=== PATIENT | female | born 1950 | race Caucasian/White ===

== ENCOUNTER → 2019-05-23 12:15 | Outpatient (CLI) | payer MEDICARE, OTHER, SELFPAY ==
--- NOTE | ~2019-05-23 | MR_ITS ---
EXAMINATION: MR lumbar spine wo con EXAM DATE: 05/23/2019 13:02 INDICATION: Low back pain, right hip, right leg pain. TECHNIQUE: Multi-sequential, multiplanar MR images of the lumbar spine were obtained without contrast . Sagittal T1, T2, T2 fat saturation images. Axial T2 weighted images. There is no prior study for comparison. FINDINGS: Suspicion of cystic right ovarian mass measuring over 8 cm in size, incompletely imaged. Re commend pelvic sonogram to evaluate possibility of cystic ovarian neoplasm. There is mild to moderate disc disease throughout the lumbar spine. The conus medullaris terminates a t the L1/2 level and has normal signal intensity and morphology. Mild lumbar levoscoliosis. The vert ebral bodies are aligned in the AP dimension. Vertebral body and disc heights are well-maintained. Pa raspinal soft tissue is unremarkable. Level by level evaluation: T12-L1: Disc does not extend beyond the endplate margin. Facet arthropathy: Mild. Neural foraminal stenosis: No stenosis. Central canal stenosis: No stenosis. L1-L2: There is a mild to moderate diffuse disc bulge. Facet arthropathy: Mild. Neural foraminal stenosis: Mild left. Central canal stenosis: Mild. L2-L3: There is a mild to moderate diffuse disc bulge. Facet arthropathy: Mild. Neural foraminal stenosis: Mild right. Central canal stenosis: Mild. L3-L4: There is a mild diffuse disc bulge. Facet arthropathy: Mild. Neural foraminal stenosis: Mild bilateral. Central canal stenosis: Mild. L4-L5: There is a mild to moderate diffuse disc bulge. Facet arthropathy: Mild to moderate. Neural foraminal stenosis: Mild to moderate bilateral. Central canal stenosis: Mild to moderate. L5-S1: There is a mild diffuse disc bulge. Facet arthropathy: Mild. Neural foraminal stenosis: Mild left. Central canal stenosis: No stenosis. IMPRESSION: 1. Cystic pelvic region probably cystic right ovarian mass; recommend pelvic sonogram. 2. Mild to moderate lumbar spondylosis. Reviewed, dictated and finalized at location A. EKEE[employer] ENGINEER[employer] IMPRESSION: 1. Cystic pelvic region probably cystic right ovarian mass; recommend pelvic s onogram. 2. Mild to moderate lumbar spondylosis.
== END ==
PROVIDERS: Visit Provider Orthopaedic Surgery
DX: M47.26 Other spondylosis with radiculopathy, lumbar region (principal)
CPT/HCPCS: 72148

== ENCOUNTER 2019-09-05 06:40 | Outpatient (CLI) | payer MEDICARE, OTHER, SELFPAY ==
[2019-09-05 07:39] LABS: Alanine Aminotransferase 24 U/L (4-35); Albumin Level 4.2 g/dL (3.5-5.1); Alkaline Phosphatase 55 U/L (38-126); Aspartate Amino Transferase 29 U/L (14-36); Bilirubin,Total 0.6 mg/dL (0.2-1.3); Blood Urea Nitrogen 13 mg/dL (7-17); Calcium 9.5 mg/dL (8.4-10.2); Carbon Dioxide 33 mmol/L (22-30); Chloride 99 mmol/L (98-107); Estimated Glomerular Filt Rate > 60; Glucose 119 mg/dL (65-105); Potassium 4.1 mmol/L (3.4-5.0); Sodium 138 mmol/L (137-145)
[2019-09-05 07:53] LABS: Creatinine Urine 118.8 mg/dL
[2019-09-05 07:57] LABS: MALB Creatinine Ratio 26.6 mg/g (0-30); Microalbumin Urine Random 31.6 mg/L (0-16.7)
== END 2019-09-05 06:41 | disposition home or self-care (01) ==
PROVIDERS: PCP Internal Medicine; Visit Provider Internal Medicine
DX: R73.01 Impaired fasting glucose (principal)
CPT/HCPCS: 36415; 80053; 82043; 83036

== ENCOUNTER 2019-09-10 13:32 | Outpatient (CLI) | payer MEDICARE, OTHER, SELFPAY ==
[2019-09-10 14:54] LABS: Add Urine Microscopic? YES; Appearance Urine Clear (Clear); Bilirubin Urine Negative (Negative); Blood Urine 3+ (Negative); Color Urine Amber (Yellow); Glucose Urine UA Negative (Negative); Ketones Urine Negative (Negative); Leukocyte Esterase Ur 1+ LEU/UL (Negative); Mucus Urine Rare /lpf; Nitrate Urine Positive (Negative); Protein Urine Negative (Negative); RBC Urine >75 /hpf (0-2); Specific Grav Ur 1.017 (1.001-1.035); Squamous Epithelial Cell Urine Rare /hpf (Few); WBC Urine >75 /hpf
== END 2019-09-10 13:33 | disposition home or self-care (01) ==
LOC: ANHLAB 13:37
PROVIDERS: PCP Internal Medicine; Visit Provider Internal Medicine
DX: N39.0 Urinary tract infection, site not specified (principal)
CPT/HCPCS: 81001; 87077; 87086; 87088; 87186

== ENCOUNTER 2019-12-14 09:02 | Outpatient (CLI) | payer MEDICARE, OTHER, SELFPAY ==
--- NOTE | ~2019-12-14 | MM_ITS ---
EXAMINATION: MM screening olga BI w angely HISTORY: Screening mammogram TECHNIQUE: Craniocaudal and mediolateral oblique 3-D tomosynthesis images were obtained and synthetic 2-D images were generated. CAD analysis was submitted and interpreted. COMPARISON: 10/12/2018, 09/28/2017 bilateral digital screening mammogram examinations BREAST PARENCHYMAL COMPOSITION: There are scattered areas of fibroglandular density. FINDINGS: There is no evidence of suspicious mass, calcification, or architectural distortion to sugg est malignancy in either breast. There has been no suspicious interval change. IMPRESSION: 1. No mammographic evidence of malignancy. 2. Recommend routine screening mammography in one year. BI-RADS Category 1: Negative Reviewed, dictated and finalized at location A.
== END 2019-12-14 09:03 | disposition home or self-care (01) ==
LOC: ANHIMG 09:06
PROVIDERS: PCP Internal Medicine; Visit Provider Obstetrics & Gynecology
DX: Z12.31 Encounter for screening mammogram for malignant neoplasm of breast (principal)
CPT/HCPCS: 77063; 77067

== ENCOUNTER 2020-02-25 09:11 | Outpatient (CLI) | payer MEDICARE, OTHER, SELFPAY ==
[2020-02-25 09:35] LABS: Basophils Absolute Auto 0.1 K/mm3 (0.0-0.1); Basophils Percent Auto 1.1 % (0.2-1.2); Eosinophils Absolute Auto 0.1 K/mm3 (0-0.3); Eosinophils Percent Auto 1.4 % (0-4.4); Hematocrit 42.2 % (37.0-47.0); Hemoglobin 13.8 g/dL (12.0-15.0); Immature Granulocyte Absolute 0.02 K/mm3 (0.00-0.031); Immature Granulocyte Percent A 0.3 % (0-0.5); Lymphocytes Absolute Auto 1.76 K/mm3 (0.9-3.2); Lymphocytes Percent Auto 26.9 % (18.3-44.2); Mean Corpuscular HGB Conc 32.7 g/dl (32-36); Mean Corpuscular Hemoglobin 28.8 pg (26-34); Mean Corpuscular Volume 88.1 fl (80-100); Mean Platelet Volume 10.5 fl (7.4-10.4); Monocytes Absolute Auto 0.4 K/mm3 (0.1-0.6); Monocytes Percent Auto 5.8 % (2.6-8.5); Neutrophils Absolute Auto 4.2 K/mm3 (1.3-6.7); Neutrophils Percent Auto 64.5 % (45.5-73.1); Platelet Count Result 262 k/mm3 (150-375); Red Blood Count 4.79 M/mm3 (4.2-5.4); Red Cell Distribution Width 14.7 % (11.5-14.5); White Blood Count 6.6 K/mm3 (4.5-10.0)
[2020-02-25 09:42] LABS: Hemoglobin A1C 5.7 % (<5.7)
[2020-02-25 09:47] LABS: Alanine Aminotransferase 27 U/L (4-35); Albumin Level 4.4 g/dL (3.5-5.1); Alkaline Phosphatase 55 U/L (38-126); Anion Gap 7 mmol/L (8-16); Aspartate Amino Transferase 37 U/L (14-36); Bilirubin,Total 0.8 mg/dL (0.2-1.3); Blood Urea Nitrogen 17 mg/dL (7-17); Calcium 9.6 mg/dL (8.4-10.2); Carbon Dioxide 30 mmol/L (22-30); Chloride 101 mmol/L (98-107); Cholesterol 148 mg/dL (0-200); Estimated Glomerular Filt Rate > 60; Glucose 111 mg/dL (65-105); HDL Direct 84 mg/dL; Potassium 4.4 mmol/L (3.4-5.0); Sodium 138 mmol/L (137-145); Triglycerides 90 mg/dL (<150)
[2020-02-25 10:02] LABS: LDL Cholesterol Direct < 30 mg/dL
[2020-02-25 10:25] LABS: Creatinine Urine 117.5 mg/dL
[2020-02-25 10:29] LABS: MALB Creatinine Ratio 65.8 mg/g (0-30); Microalbumin Urine Random 77.3 mg/L (0-16.7)
[2020-02-25 10:33] LABS: Vitamin D 25 Hydroxy 69.5 ng/mL
== END 2020-02-25 09:12 | disposition home or self-care (01) ==
LOC: ANHLAB 09:16
PROVIDERS: PCP Internal Medicine; Visit Provider Internal Medicine
DX: I10 Essential (primary) hypertension (principal); R73.01 Impaired fasting glucose; E55.9 Vitamin D deficiency, unspecified
CPT/HCPCS: 36415; 80053; 80061; 82043; 82306; 83036; 84443; 85025

== ENCOUNTER 2020-09-12 07:50 | Outpatient (CLI) | payer MEDICARE, OTHER, SELFPAY ==
[2020-09-12 16:05] LABS: Alanine Aminotransferase 18 U/L (4-35); Albumin Level 4.1 g/dL (3.5-5.1); Alkaline Phosphatase 42 U/L (38-126); Anion Gap 1 mmol/L (8-16); Aspartate Amino Transferase 28 U/L (14-36); Blood Urea Nitrogen 14 mg/dL (7-17); Calcium 9.8 mg/dL (8.4-10.2); Carbon Dioxide 34 mmol/L (22-30); Chloride 105 mmol/L (98-107); Cholesterol 212 mg/dL (0-200); Estimated Glomerular Filt Rate > 60; Glucose 118 mg/dL (65-105); HDL Direct 85 mg/dL; Potassium 4.5 mmol/L (3.4-5.0); Sodium 140 mmol/L (137-145); Triglycerides 162 mg/dL (<150)
[2020-09-12 16:16] LABS: LDL Cholesterol Direct 58 mg/dL
[2020-09-12 16:24] LABS: Creatinine Urine 197.3 mg/dL
[2020-09-12 16:26] LABS: MALB Creatinine Ratio 16.7 mg/g (0-30)
[2020-09-12 17:50] LABS: Hemoglobin A1C 5.4 % (<5.7)
== END 2020-09-12 07:51 | disposition home or self-care (01) ==
PROVIDERS: PCP Internal Medicine; Visit Provider Internal Medicine
DX: R73.01 Impaired fasting glucose (principal); Z51.81 Encounter for therapeutic drug level monitoring; Z79.899 Other long term (current) drug therapy
CPT/HCPCS: 36415; 80053; 80061; 82043; 83036

== ENCOUNTER 2020-12-17 08:19 | Outpatient (CLI) | payer MEDICARE, OTHER, SELFPAY ==
--- NOTE | ~2020-12-17 | MM_ITS ---
EXAMINATION: MM screening [facility] BI w angely HISTORY: Screening mammogram TECHNIQUE: Craniocaudal and mediolateral oblique 3-D tomosynthesis images were obtained and synthetic 2-D images were generated. CAD analysis was submitted and interpreted. COMPARISON: Prior mammograms dating back to 11/14/2015 BREAST PARENCHYMAL COMPOSITION: There are scattered areas of fibroglandular density. FINDINGS: There is no evidence of suspicious mass, calcification, or architectural distortion to sugg est malignancy in either breast. There has been no suspicious interval change. IMPRESSION: 1. No mammographic evidence of malignancy. 2. Recommend routine screening mammography in one year. BI-RADS Category 1: Negative Reviewed, dictated and finalized at location A.
== END 2020-12-17 08:20 | disposition home or self-care (01) ==
LOC: ANHIMG 08:23
PROVIDERS: PCP Internal Medicine; Visit Provider Internal Medicine
DX: Z12.31 Encounter for screening mammogram for malignant neoplasm of breast (principal)
CPT/HCPCS: 77063; 77067

== ENCOUNTER 2021-02-09 14:47 | Outpatient (CLI) | payer MEDICARE, OTHER, SELFPAY ==
[2021-02-09 15:29] LABS: Add Urine Microscopic? YES; Appearance Urine Clear (Clear); Bilirubin Urine Negative (Negative); Blood Urine 1+ (Negative); Color Urine Amber (Yellow); Glucose Urine UA Negative (Negative); Ketones Urine Negative (Negative); Leukocyte Esterase Ur 3+ LEU/UL (Negative); Nitrate Urine Positive (Negative); Protein Urine Negative (Negative); Specific Grav Ur 1.011 (1.001-1.035); Urobilinogen Urine Negative mg/dL (<2.0); WBC Urine 16-20 /hpf
== END 2021-02-09 14:48 | disposition home or self-care (01) ==
LOC: ANHLAB 14:51
PROVIDERS: PCP Internal Medicine; Visit Provider Internal Medicine
DX: N39.0 Urinary tract infection, site not specified (principal)
CPT/HCPCS: 81001; 87077; 87086; 87186

== ENCOUNTER 2021-03-06 07:25 | Outpatient (CLI) | payer MEDICARE, OTHER, SELFPAY ==
[2021-03-06 19:31] LABS: Hematocrit 44.8 % (37.0-47.0); Hemoglobin 14.3 g/dL (12.0-15.0); Mean Corpuscular HGB Conc 31.9 g/dl (32-36); Mean Corpuscular Hemoglobin 30.1 pg (26-34); Mean Corpuscular Volume 94.3 fl (80-100); Platelet Count Result 268 k/mm3 (150-375); Red Blood Count 4.75 M/mm3 (4.2-5.4); Red Cell Distribution Width 14.4 % (11.5-14.5); White Blood Count 6.4 K/mm3 (4.5-10.0)
[2021-03-06 19:39] LABS: Alanine Aminotransferase 20 U/L (4-35); Albumin Level 4.1 g/dL (3.5-5.1); Alkaline Phosphatase 46 U/L (38-126); Anion Gap 2 mmol/L (8-16); Aspartate Amino Transferase 27 U/L (14-36); Bilirubin,Total 0.8 mg/dL (0.2-1.3); Blood Urea Nitrogen 16 mg/dL (7-17); Calcium 9.6 mg/dL (8.4-10.2); Carbon Dioxide 30 mmol/L (22-30); Chloride 101 mmol/L (98-107); Estimated Glomerular Filt Rate > 60; Glucose 105 mg/dL (65-110); Potassium 4.3 mmol/L (3.4-5.0); Sodium 133 mmol/L (137-145)
[2021-03-06 22:10] LABS: Microalbumin Urine Random 23.7 mg/L (0-16.7)
== END 2021-03-06 07:26 | disposition home or self-care (01) ==
PROVIDERS: PCP Internal Medicine; Visit Provider Internal Medicine
DX: M81.0 Age-related osteoporosis without current pathological fracture (principal); M70.61 Trochanteric bursitis, right hip; E78.5 Hyperlipidemia, unspecified
CPT/HCPCS: 36415; 80053; 82043; 85027

== ENCOUNTER 2021-03-23 10:33 | Outpatient (CLI) | payer MEDICARE, OTHER, SELFPAY ==
--- NOTE | 2021-03-23 10:51 | ECG_ITS ---
Measurements Intervals [place] Rate: 59 P: 48 SC: 176 QRS: -7 QRSD: 89 T: 38 QT: 404 QTc: 402 Interpretive Statements SINUS BRADYCARDIA CANNOT RULE OUT SEPTAL INFARCT, AGE INDETERMINATE CONSIDER INFERIOR INFARCT, AGE INDETERMINATE BORDERLINE ST-T WAVE ABNORMALITY- ANTEROLAT/HIG HLAT LEADS ABNORMAL ECG Electronically Signed On 03-23-2021 11:23:11 CDT by José Briceno D.O.
== END 2021-03-23 10:34 | disposition home or self-care (01) ==
LOC: ANHCARD 10:35
PROVIDERS: PCP Internal Medicine; Visit Provider Internal Medicine
DX: R00.1 Bradycardia, unspecified (principal); I10 Essential (primary) hypertension; R94.31 Abnormal electrocardiogram [ECG] [EKG]
CPT/HCPCS: 93005

== ENCOUNTER 2021-04-10 10:11 | Outpatient (CLI) | payer MEDICARE, OTHER, SELFPAY ==
--- NOTE | ~2021-04-10 | NM_ITS ---
EXAMINATION: NM stress w perf spect multi DATE: 04/10/2021 13:48 INDICATION: Abnormal EKG TECHNIQUE: Rest images were obtained following intravenous administration of 9.2 mCi Tc99m tetrofosmi n ([employer]). The patient performed an exercise activity. At peak exercise, 29.1 mCi Tc99m tetrofosmin ([employer]) was administered intravenously, and stress images were obtained in supine position. Additi onal post stress images were obtained in the prone position. Data was reconstructed into short axis a nd horizontal and vertical long axis SPECT images. Gated SPECT images were also obtained. COMPARISON: None. FINDINGS: There is normal left ventricular perfusion without definite evidence of reversible or fixed perfusion abnormality to suggest ischemia or infarction. There is normal left ventricular chamber size, wall motion and ejection fraction. Left ventricular ejection fraction measures 57%. IMPRESSION: 1. Normal myocardial perfusion at rest and during stress. 2. Left ventricular ejection fraction measuring 57%. Reviewed, dictated and finalized at location A.
--- NOTE | 2021-04-10 11:58 | EST_ITS ---
Patient Info Name: Izabel Miguel Ormrod Age: 70 years : 1950 Gender: Female Ht: 65 in Wt: 167 lbs BSA: 1.88 m2 Heart Rhythm: Sinus Rhythm Exam Date: 04/10/2021 12:02 PM Exam Location: [facility] [place] [facility] Patient Status: Outpatient Admit Date: 04/10/2021 Staff Ordering Physician: Jay Stovall MD Attending Provider: Jay Stovall MD Exercise Technologist: Lena Aquino CT Exercise Physician: José Briceno DO Exam Type: CA stress test treadmill w NM Study Info A nuclear stress test was performed. Summary 1. 1. Negative David exercise stress test for ischemic ST changes by ECG criteria. 2. 2. Good functional capacity, achieving 8 METs of workload. 3. 3. Baseline hypertension. 4. 4. Appropriate HR response to exercise. 5. 5. Appropriate HR recovery at 1 minute post exercise. 6. 6. Frequent premature ventricular ectopics. 7. 7. Nuclear scan to follow and will be reported separately. Please correlate with it. 8. 8. Patient informed of the above results. Protocol: David Stress ECG Details Stage: REST Duration (min): 1 min : 56 sec Speed (mph): 0.0 Grade (%): 0 HR (bpm): 55 SBP (mmHg): 163 DBP (mmHg): 81 METS: --- Stage: REST Duration (min): 5 min : 43 sec Speed (mph): 0.0 Grade (%): 0 HR (bpm): --- SBP (mmHg): 163 DBP (mmHg): 81 METS: --- Stage: STAGE 1 Duration (min): 1 min : 0 sec Speed (mph): 1.7 Grade (%): 10 HR (bpm): 87 SBP (mmHg): 163 DBP (mmHg): 81 METS: --- Stage: STAGE 1 Duration (min): 2 min : 0 sec Speed (mph): 1.7 Grade (%): 10 HR (bpm): --- SBP (mmHg): 163 DBP (mmHg): 81 METS: --- Stage: STAGE 1 Duration (min): 3 min : 0 sec Speed (mph): 1.7 Grade (%): 10 HR (bpm): --- SBP (mmHg): 174 DBP (mmHg): 72 METS: --- Stage: STAGE 2 Duration (min): 1 min : 0 sec Speed (mph): 2.5 Grade (%): 12 HR (bpm): 98 SBP (mmHg): 174 DBP (mmHg): 72 METS: --- Stage: STAGE 2 Duration (min): 2 min : 0 sec Speed (mph): 2.5 Grade (%): 12 HR (bpm): 127 SBP (mmHg): 174 DBP (mmHg): 72 METS: --- Stage: STAGE 2 Duration (min): 3 min : 0 sec Speed (mph): 2.5 Grade (%): 12 HR (bpm): --- SBP (mmHg): 174 DBP (mmHg): 72 METS: --- Stage: STAGE 3 Duration (min): 0 min : 49 sec Speed (mph): 3.4 Grade (%): 14 HR (bpm): --- SBP (mmHg): 153 DBP (mmHg): 83 METS: --- Stage: RECOVERY Duration (min): 0 min : 10 sec Speed (mph): 1.5 Grade (%): 0 HR (bpm): --- SBP (mmHg): 153 DBP (mmHg): 83 METS: --- Stage: RECOVERY Duration (min): 1 min : 10 sec Speed (mph): 0.0 Grade (%): 0 HR (bpm): 110 SBP (mmHg): 153 DBP (mmHg): 83 METS: --- Stage: RECOVERY Duration (min): 2 min : 10 sec Speed (mph): 0.0 Grade (%): 0 HR (bpm): 97 SBP (mmHg): 153 DBP (mmHg): 83 METS:
== END 2021-04-10 10:12 | disposition home or self-care (01) ==
PROVIDERS: PCP Internal Medicine; Visit Provider Internal Medicine
DX: R94.31 Abnormal electrocardiogram [ECG] [EKG] (principal)
CPT/HCPCS: 78452; 93017; A9502

== ENCOUNTER 2022-01-25 07:49 | Outpatient (CLI) | payer MEDICARE, OTHER, SELFPAY ==
--- NOTE | ~2022-01-25 | MM_ITS ---
EXAMINATION: MM screening olga BI w angely HISTORY: Screening mammogram TECHNIQUE: Craniocaudal and mediolateral oblique 3-D tomosynthesis images were obtained and synthetic 2-D images were generated. CAD analysis was submitted and interpreted. COMPARISON: 12/17/2020, 12/14/2019, 10/12/2018 bilateral screening mammogram examinations BREAST PARENCHYMAL COMPOSITION: There are scattered areas of fibroglandular density. FINDINGS: There is no evidence of suspicious mass, calcification, or architectural distortion to sugg est malignancy in either breast. There has been no suspicious interval change. IMPRESSION: 1. No mammographic evidence of malignancy. 2. Recommend routine screening mammography in one year. BI-RADS Category 1: Negative Reviewed, dictated and finalized at location A.
== END 2022-01-25 07:50 | disposition home or self-care (01) ==
LOC: ANHIMG 07:51
PROVIDERS: PCP Internal Medicine; Visit Provider Internal Medicine
DX: Z12.31 Encounter for screening mammogram for malignant neoplasm of breast (principal)
CPT/HCPCS: 77063; 77067

== ENCOUNTER 2022-03-16 09:32 | Outpatient (CLI) | payer MEDICARE, OTHER, SELFPAY ==
--- NOTE | 2022-03-16 11:59 | ECG_ITS ---
Measurements Intervals [place] Rate: 67 P: 54 ID: [id number] QRS: -21 QRSD: 89 T: 37 QT: 381 QTc: 404 Interpretive Statements SINUS RHYTHM WITH MARKED SINUS ARRHYTHMIA VENTRICULAR PREMATURE COMPLEX INFERIOR INFARCT, AGE INDETERMINATE BORDERLINE ST-T WAVE ABNORMALITY- ANT/HIGH LAT LEADS BASELINE ARTIFACT- I, II, AVR, AVL, V4 ABNORMAL ECG COMPARED TO ECG 03/23/2021 10:58:52 SINUS RHYTHM NOW PRESENT Electronically Signed On 03-16-2022 12:18:28 CDT by José Briceno D.O.
[2022-03-16 18:46] LABS: Basophils Absolute Auto 0.1 K/mm3 (0.0-0.1); Basophils Percent Auto 0.9 % (0.2-1.2); Eosinophils Absolute Auto 0.1 K/mm3 (0-0.3); Eosinophils Percent Auto 1.5 % (0-4.4); Hematocrit 47.2 % (37.0-47.0); Hemoglobin 14.7 g/dL (12.0-15.0); Immature Granulocyte Absolute 0.02 K/mm3 (0.00-0.031); Immature Granulocyte Percent A 0.3 % (0-0.5); Lymphocytes Absolute Auto 1.74 K/mm3 (0.9-3.2); Mean Corpuscular HGB Conc 31.1 g/dl (32-36); Mean Corpuscular Hemoglobin 29.6 pg (26-34); Mean Corpuscular Volume 95.2 fl (80-100); Mean Platelet Volume 11.1 fl (7.4-10.4); Monocytes Absolute Auto 0.5 K/mm3 (0.1-0.6); Monocytes Percent Auto 7.8 % (2.6-8.5); Neutrophils Absolute Auto 4.3 K/mm3 (1.3-6.7); Neutrophils Percent Auto 63.5 % (45.5-73.1); Platelet Count Result 272 k/mm3 (150-375); Red Blood Count 4.96 M/mm3 (4.2-5.4); Red Cell Distribution Width 14.4 % (11.5-14.5); White Blood Count 6.7 K/mm3 (4.5-10.0)
[2022-03-16 19:12] LABS: Alanine Aminotransferase 25 U/L (6-35); Albumin Level 4.8 g/dL (3.5-5.1); Alkaline Phosphatase 53 U/L (38-126); Anion Gap 12 mmol/L (8-16); Aspartate Amino Transferase 29 U/L (14-36); Bilirubin,Total 0.6 mg/dL (0.2-1.3); Blood Urea Nitrogen 17 mg/dL (7-17); Calcium 10.5 mg/dL (8.4-10.2); Carbon Dioxide 28 mmol/L (22-30); Chloride 100 mmol/L (98-107); Cholesterol 266 mg/dL (0-200); Estimated Glomerular Filt Rate > 60; Glucose 122 mg/dL (65-110); HDL Direct 85 mg/dL; Potassium 5.3 mmol/L (3.4-5.0); Sodium 140 mmol/L (137-145); Triglycerides 247 mg/dL (<150)
[2022-03-16 19:24] LABS: LDL Cholesterol Direct 59 mg/dL
== END 2022-03-16 09:33 | disposition home or self-care (01) ==
PROVIDERS: PCP Emergency Medicine; Visit Provider Emergency Medicine
DX: E78.5 Hyperlipidemia, unspecified (principal); M25.551 Pain in right hip; R94.31 Abnormal electrocardiogram [ECG] [EKG]
CPT/HCPCS: 36415; 80053; 80061; 84443; 85025; 93005

== ENCOUNTER 2022-04-16 09:21 | Outpatient (CLI) | payer MEDICARE, OTHER, SELFPAY ==
[2022-04-16 20:37] LABS: Alanine Aminotransferase 25 U/L (6-35); Albumin Level 4.5 g/dL (3.5-5.1); Alkaline Phosphatase 56 U/L (38-126); Anion Gap 7 mmol/L (8-16); Aspartate Amino Transferase 59 U/L (14-36); Bilirubin,Total 0.6 mg/dL (0.2-1.3); Blood Urea Nitrogen 15 mg/dL (7-17); Calcium 9.6 mg/dL (8.4-10.2); Carbon Dioxide 28 mmol/L (22-30); Chloride 101 mmol/L (98-107); Estimated Glomerular Filt Rate > 60; Glucose 101 mg/dL (65-110); Potassium 4.5 mmol/L (3.4-5.0); Sodium 136 mmol/L (137-145)
[2022-04-19 09:38] LABS: Parathyroid Intact 35.6 pg/mL (7.5-53.5)
== END 2022-04-16 09:22 | disposition home or self-care (01) ==
PROVIDERS: PCP Emergency Medicine; Visit Provider Emergency Medicine
DX: E83.52 Hypercalcemia (principal)
CPT/HCPCS: 36415; 80053; 83970

== ENCOUNTER 2022-04-20 07:28 | Outpatient (CLI) | payer MEDICARE, OTHER, SELFPAY ==
--- NOTE | 2022-04-20 07:41 | ECHO_ITS ---
Patient Info Name: Izabel Fischer Age: 71 years : 1950 Gender: Female Ht: 65 in Wt: 174 lbs BSA: 1.92 m2 HR: 75 bpm BP: 167 / 79 mmHg Heart Rhythm: Sinus Rhythm Technical Quality: Fair Exam Date: 04/20/2022 8:07 AM Exam Location: [facility] Patient Status: Outpatient Admit Date: 04/20/2022 Staff Ordering Physician: José Briceno DO Journeyman Press Operator: Cortney Diaz RDCS Attending Provider: José Briceno DO Referring Physician: Janak DOS SANTOS; Exam Type: CA echo doppler color flow Study Info Indications I49.9 - Cardiac arrhythmia, unspecified Complete two-dimensional, color flow and Doppler transthoracic echocardiogram is performed. Summary 1. Complete two-dimensional, color flow and Doppler transthoracic echocardiogram is performed. 2. Left ventricular chamber dimension is normal. 3. Left ventricular systolic function is normal, estimated at 60-65%. 4. The left ventricular diastolic function is grade I diastolic dysfunction. 5. E/e' 17 is elevated. 6. There is trace mitral valve regurgitation. 7. There is trace tricuspid valve regurgitation. 8. No pulmonary hypertension, estimated pulmonary arterial systolic pressure is 24 mmHg. Left Ventricle E/e' 17 is elevated. Left ventricular chamber dimension is normal. Left ventricular systolic function is normal, estimated at 60-65%. The left ventricular diastolic function is grade I diastolic dysfunction. Right Ventricle Right ventricular chamber dimension is normal. Right ventricular systolic function is normal. Left Atria Left atrial chamber dimension is normal. Right Atria Right atrial chamber dimension is normal. Aortic Valve The aortic valve is trileaflet. There is no aortic valve stenosis. There is no aortic valve regurgitation. Pulmonic Valve There is no pulmonic regurgitation. Mitral Valve There is no mitral valve stenosis. There is trace mitral valve regurgitation. Tricuspid Valve There is trace tricuspid valve regurgitation. No pulmonary hypertension, estimated pulmonary arterial systolic pressure is 24 mmHg. Pericardium/Pleural There is no pericardial effusion. Inferior Vena Cava Normal inferior vena cava with >50% collapse upon inspiration consistent with normal right atrial pressure, 5 mmHg. Aorta The aortic root size at the sinus of Valsalva is normal. Left Ventricular Outflow Tract Name Value Normal LVOT 2D LVOT Diameter 2.0 cm LVOT Doppler LVOT Peak Gradient 3 mmHg LVOT Mean Gradient 1 mmHg LVOT VTI 19 cm LVOT VTI/AV VTI Ratio 0.7 LVOT Stroke Volume 62 ml LVOT CO 4.5 l/min LVOT CI 2.3 l/min/m2 Pulmonic Valve Name Value Normal RVOT Doppler
== END 2022-04-20 07:29 | disposition home or self-care (01) ==
LOC: ANHCARD 07:30
PROVIDERS: PCP Emergency Medicine; Visit Provider Internal Medicine Cardiovascular Disease
DX: R06.09 Other forms of dyspnea (principal); I49.9 Cardiac arrhythmia, unspecified
CPT/HCPCS: 93306

== ENCOUNTER 2022-04-30 00:21 | Day surgery (SDC) | payer MEDICARE, OTHER, SELFPAY ==
[2022-04-16 14:07] VITALS: BMI 28.8
[2022-04-30 07:46] VITALS: BP 156/89; PULSE 73; RESP 15; TEMP 36.2; O2SAT 96
[2022-04-30] MEDS: LACTATED RINGERS 1,000 ML 150 ML IV CONT (08:02)
--- NOTE | 2022-04-30 08:02 | WPDANESEPPF ---
Anes - Initial Pre Proc Eval Procedure: Operation Date: 04/30/22 08:30 Proposed Procedures p Screening Colonoscopy - Gaetano Aktins MD Date/Time: 04/30/22 08:02 Surgeon: Gaetano Atkins MD Pre Op Diagnosis: neoplasm screening Patient Data Age: 72 Gender: F Height: 1.65 m Weight: 76.9 kg Last Vital Signs Temp 97.1 F L 04/30/22 07:46 Pulse 73 04/30/22 07:46 Resp 15 04/30/22 07:46 BP 156/89 H 04/30/22 07:46 Pulse Ox 96 04/30/22 07:46 O2 Del Method Room Air 04/30/22 07:46 Allergies Allergy/AdvReac Type Severity Reaction Status Date / Time No Known Allergies Allergy Verified 04/30/22 07:44 Home Medications Medication Instructions Recorded Confirmed Type calcium phosphate 250 mg-vit D3 1 tablet PO DAILY 04/30/19 04/16/22 History 12.5 mcg (500 unit) chewable tablet (Citracal-D3 Gummies) fluticasone propionate 50 2 spray intranasal DAILY 04/30/19 04/16/22 History mcg/actuation nasal spray,suspension (Allergy Relief (fluticasone)) alendronate 70 mg tablet (Fosamax) 70 mg PO WEEKLY #14 tabs 03/15/22 04/16/22 Rx hyoscyamine sulfate 0.375 mg 0.75 mg PO Q12H #360 tabs 03/16/22 04/16/22 Rx tablet,extended release,12 hr lisinopril 20 mg tablet See Rx Instructions .Route 04/06/22 04/16/22 Rx .COMPLEX #90 tabs metoprolol succinate 25 mg See Rx Instructions .Route 04/23/22 04/30/22 Rx tablet,extended release 24 hr .COMPLEX #90 tabs Patient hx anesthesia problems: none Family hx anesthesia problems: none Results Review: All pre-operative results and documents have been reviewed as part of the pre-operative evaluation. [facility] Past Medical History Medical History Age related osteoporosis Dyslipidemia Hypertension Lumbar radiculitis Right hip pain Trigger finger of right hand Trochanteric bursitis of right hip Surgical History Surgical History H/O oophorectomy Family History Family History Grandparent Family history of liver disease Family history of malignant neoplasm of uterus Mother Family history of hyperthyroidism Family history of chronic obstructive pulmonary disease Father Family history of lymphoma Social History Social History Years smoked: 30 Smoking status: Former smoker Tobacco type: cigarettes Smoking end date: 01/01/97 Alcohol intake: current Drinks per week: 14 Substance use: never Substance use type: does not use Living arrangements: with family Spiritual care concerns: No Anes - Eval Final PreProcedure Day of Procedure 04/30/22 08:02 Patient weight: normal Heart: irregular rhythm Lungs: clear to auscultation Airway: Mallampati scale class II Neurological: alert and oriented Last oral intake: >/= 8 hours ASA classification: III Emergent: no Anesthetic plan: proceed Anesthesia type and monitoring: general GIVS and standard monitoring Results Review: All pre-operative results and documents have been reviewed as part of the pre-operative evaluation. Informed Consent: The patient's anesthetic plan and its attendant risks and benefits were discussed with the patient/family/POA. Questions were solicited and answers provided to the satisfaction of the patient/family/POA.
--- NOTE | 2022-04-30 08:03 | SUR.PREOP ---
Spoke with Dr. Choi regarding patient HR. While taking vitals, HR dropped from 75 to 32. HR palpated and found to be irregular. Patient states she just finished wearing a cardiac event monitor last night and has been seeing a consumer affairs specialist. She also states they just started her on metoprolol and that she took that this morning. Dr. Choi to bedside to speak with patient and see cardiac rhythm on monitor. Per Dr. Choi okay to continue with procedure, and he will look at cardiac reports. No new orders at this time. Will continue to monitor patient.
--- NOTE | 2022-04-30 08:14 | PM.HPGS ---
History of Present Illness History of Present Illness Consent: Risks, benefits, and alternatives have been discussed and questions answered. Patient agrees to proceed with procedure. Chief complaint: neoplasm screening Narrative: Izabel Muir is a 72 year old female here for screening colonoscopy, last one 10 years ago Review of Systems Constitutional: Constitutional: Denies headache(s) and Denies weakness Eyes: Eyes: Denies blurry vision ENT: Reports Normal hearing present, Denies headache(s) and Denies neck pain Cardiovascular: Cardiovascular: Denies chest pain and Denies dyspnea Respiratory: Respiratory: Denies dyspnea Gastrointestinal: Gastrointestinal: Reports no additional gastrointestinal complaints Genitourinary: Genitourinary: Denies dysuria Musculoskeletal: Musculoskeletal: Denies neck pain Integumentary/Breasts: Skin/Breast: Denies dry skin Neurologic: Reports Normal hearing present, Denies headache(s) and Denies weakness Psychiatric: Psychiatric: Denies anxiety Endocrine: Endocrine: Denies change in body appearance Hematologic/Lymphatic: Hematologic/Lymphatic: Denies easy bleeding Allergic/Immunologic: Allergic/Immunologic: Denies urticaria PMFSH Past Medical History Medical History (Updated 04/30/22 @ 08:14 by Gaetano Atkins MD) Age related osteoporosis Colon cancer screening Dyslipidemia Hypertension Lumbar radiculitis Right hip pain Trigger finger of right hand Trochanteric bursitis of right hip Surgical History Surgical History H/O oophorectomy Family History Family History Grandparent Family history of liver disease Family history of malignant neoplasm of uterus Mother Family history of hyperthyroidism Family history of chronic obstructive pulmonary disease Father Family history of lymphoma Social History Social History Years smoked: 30 Smoking status: Former smoker Tobacco type: cigarettes Smoking end date: 01/01/97 Alcohol intake: current Drinks per week: 14 Substance use: never Substance use type: does not use Living arrangements: with family Spiritual care concerns: No Meds Home Medications and Allergies Home Medications Medication Instructions Recorded Confirmed Type calcium phosphate 250 mg-vit D3 1 tablet PO DAILY 04/30/19 04/16/22 History 12.5 mcg (500 unit) chewable tablet (Citracal-D3 Gummies) fluticasone propionate 50 2 spray intranasal DAILY 04/30/19 04/16/22 History mcg/actuation nasal spray,suspension (Allergy Relief (fluticasone)) alendronate 70 mg tablet (Fosamax) 70 mg PO WEEKLY #14 tabs 03/15/22 04/16/22 Rx hyoscyamine sulfate 0.375 mg 0.75 mg PO Q12H #360 tabs 03/16/22 04/16/22 Rx tablet,extended release,12 hr lisinopril 20 mg tablet See Rx Instructions .Route 04/06/22 04/16/22 Rx .COMPLEX #90 tabs metoprolol succinate 25 mg See Rx Instructions .Route 04/23/22 04/30/22 Rx tablet,extended release 24 hr .COMPLEX #90 tabs Allergies Allergy/AdvReac Type Severity Reaction Status Date / Time No Known Allergies Allergy Verified 04/30/22 07:44 Vital Signs Vital Signs - 24 hr 04/30/22 07:46 Temperature 97.1 F L Pulse Rate 73 Respiratory Rate 15 Blood Pressure 156/89 H Pulse Oximetry 96 Oxygen Delivery Room Air Exam Const: General: comfortable and no acute distress HENMT: Face/Nose/Sinus: Normal nares present Eyes: General: appearance normal, both eyes and all related structures Neck: Neck: no JVD Resp: Auscultation: clear to auscultation bilaterally Cardio: Rate: regular rate Rhythm: regular rhythm GI: Inspection: non-distended GI Palp: Yes Soft to palpation Skin: General skin exam: normal color Neuro: General: gait normal Speech: normal speech Extrem:
[2022-04-30 08:40] VITALS: BP 116/57; PULSE 65; RESP 22; O2SAT 96
[2022-04-30 08:50] VITALS: BP 122/74; PULSE 60; RESP 25; O2SAT 98
[2022-04-30 09:00] VITALS: BP 129/79; PULSE 61; RESP 28; O2SAT 97
== END 2022-04-30 09:08 | disposition home or self-care (01) ==
PROVIDERS: PCP Emergency Medicine; Visit Provider Internal Medicine Gastroenterology
PROC: 0DJD8ZZ Inspection of Lower Intestinal Tract, Via Natural or Artificial Opening Endoscopic (ICD-10-PCS; CPT 45378; principal; 2022-04-30 08:30)
DX: Z12.11 Encounter for screening for malignant neoplasm of colon (principal); K57.30 Diverticulosis of large intestine without perforation or abscess without bleeding; D12.0 Benign neoplasm of cecum; K63.5 Polyp of colon; K64.8 Other hemorrhoids; I10 Essential (primary) hypertension; E78.5 Hyperlipidemia, unspecified; M81.0 Age-related osteoporosis without current pathological fracture; Z87.891 Personal history of nicotine dependence
CPT/HCPCS: 45385; 88305; J2704; J7120

== ENCOUNTER 2022-09-15 09:43 | Outpatient (CLI) | payer MEDICARE, OTHER, SELFPAY ==
[2022-09-15 10:55] LABS: Cholesterol 232 mg/dL (0-200); HDL Direct 60 mg/dL; Triglycerides 227 mg/dL (<150)
[2022-09-15 11:06] LABS: LDL Cholesterol Direct 53 mg/dL
== END 2022-09-15 09:44 | disposition home or self-care (01) ==
LOC: ANHLAB 09:45
PROVIDERS: PCP Emergency Medicine; Visit Provider Internal Medicine Cardiovascular Disease
DX: E78.5 Hyperlipidemia, unspecified (principal)
CPT/HCPCS: 36415; 80061

== ENCOUNTER 2022-11-07 11:18 | Emergency (ER) | payer MEDICARE, OTHER, SELFPAY ==
--- NOTE | 2022-11-07 11:21 | ED.GENADULT ---
HPI - General Adult General Chief complaint: Urogenital-Female Stated complaint: Possible UTI Time Seen by Provider: 11/07/22 11:21 Source: patient Mode of arrival: ambulatory Limitations: no limitations History of Present Illness HPI narrative: 72-year-old female patient presents to the [facility] with complaints of urinary symptoms that started about 2-3 days ago. Patient states she recently got any bright and attributes that to some of the irritation she has good having to the vaginal area. Patient states she has been drinking lots of water but when she feels the urge to urinate she has not been producing much. Patient denies any pain with during urination. Denies any low back pain, abdominal pain, nausea, vomiting or diarrhea. Denies fevers or body aches or chills. Related Data Home Medications Medication Instructions Recorded Confirmed omega 3-dha 500 mg-epa 100 mg-fish 1 cap PO DAILY 09/15/22 11/07/22 oil capsule Allergies Allergy/AdvReac Type Severity Reaction Status Date / Time No Known Allergies Allergy Verified 11/07/22 11:21 Review of Systems Review of Systems: CONSTITUTIONAL: Denies fever, chills, or sweats. EYES: Denies visual changes, redness, or discharge. ENT: Denies rhinorrhea, congestion, sore throat, or otalgia. CARDIOVASCULAR: Denies chest pain, palpitations, or edema. RESPIRATORY: Denies cough or dyspnea. GASTROINTESTINAL: Denies abdominal pain, nausea, vomiting, or diarrhea. GENITOURINARY: Positive dysuria , denies gross hematuria. SKIN: Denies rash or itching. MUSCULOSKELETAL: Denies back pain, joint pain, or myalgia. NEUROLOGIC: Denies headache, numbness, or weakness. PSYCHIATRIC: Denies anxiety or depression. [facility] Past Medical History Medical History Age related osteoporosis Arthritis of right hand Colon cancer screening Dyslipidemia Hypertension Lumbar radiculitis Right hip pain Trigger finger of right hand Trochanteric bursitis of right hip Surgical History Surgical History H/O oophorectomy Family History Family History Grandparent Family history of liver disease Family history of malignant neoplasm of uterus Mother Family history of hyperthyroidism Family history of chronic obstructive pulmonary disease Father Family history of lymphoma Social History Social History Years smoked: 30 Smoking status: Former smoker Tobacco type: cigarettes Smoking end date: 01/01/97 Alcohol intake: current Drinks per week: 14 Substance use: never Substance use type: does not use Living arrangements: with family Spiritual care concerns: No Comments At the time of my signature I agree with nursing past medical history, surgical, social, and family history. There is no relevant family history pertinent to the presenting complaint. Exam Narrative: GENERAL: Well-appearing, well-nourished, and in no acute distress. HEAD: Normocephalic, atraumatic. EYES: PERRLA and EOMI. ENT: Nares clear, no rhinorrhea or epistaxis. Mucous membranes moist. NECK: Supple. No lymphadenopathy CHEST: Clear to auscultation. No respiratory distress. HEART: Regular rate and rhythm. No murmur heard. Normal peripheral pulses. ABDOMEN: Soft, nontender, nondistended, normal active bowel sounds. no CVA tenderness on percussion. EXTREMITIES: Normal range of motion. No edema. SKIN: Warm, dry, no rash. NEURO: No focal deficits. Alert and oriented x3. Course Course Level of Care: Express Care Visit Vital Signs Vital signs: Vital Signs Temperature 36.2 C L 11/07/22 11:26 Pulse Rate 62 11/07/22 11:26 Respiratory Rate 18 11/07/22 11:26 Blood Pressure 132/64 11/07/22 11:26 Pulse Oximetry 97 11/07/22 11:26 Oxygen Delivery Room Air
[2022-11-07 11:26] VITALS: BP 132/64; PULSE 62; RESP 18; TEMP 36.2; O2SAT 97
== END 2022-11-07 11:45 | disposition home or self-care (01) ==
PROVIDERS: Emergency Provider Nurse Practitioner Family; PCP Emergency Medicine
DX: N30.01 Acute cystitis with hematuria (principal); Z87.891 Personal history of nicotine dependence; M81.0 Age-related osteoporosis without current pathological fracture; E78.5 Hyperlipidemia, unspecified; I10 Essential (primary) hypertension
CPT/HCPCS: 81003; 87086; 87088; 99213; G0463

== ENCOUNTER 2023-01-02 15:41 | Emergency (ER) | payer MEDICARE, OTHER, SELFPAY ==
--- NOTE | 2023-01-02 15:53 | ED.WOUNDLAC ---
HPI - Wound/Laceration General Chief Complaint: Wound/Laceration Stated Complaint: Cut Finger on Lt Hand Time Seen by Provider: 01/02/23 15:55 Source: patient Mode of arrival: ambulatory Limitations: no limitations History of Present Illness HPI narrative: Soy is a 72-year-old female patient presenting to the clinic today with complaints of a laceration to her left middle finger that occurred approximately 30 minutes prior to arrival. She reports that she turned on her blender / cook and it did not have a blade however the attachment hit her in the finger. Bleeding is controlled. Tetanus shot is up-to-date Related Data Home Medications Medication Instructions Recorded Confirmed omega 3-dha 500 mg-epa 100 mg-fish 1 cap PO DAILY 09/15/22 01/02/23 oil capsule Allergies Allergy/AdvReac Type Severity Reaction Status Date / Time No Known Allergies Allergy Verified 01/02/23 15:50 Review of Systems Review of Systems: Pertinent positives per HPI. Patient denies any fever, chills, rash, headache, visual changes, dizziness, cough, runny nose, sore throat, shortness of breath, chest pain, palpitations, nausea, vomiting, diarrhea, constipation, abdominal pain, or any urinary issues. [facility] Past Medical History Medical History Age related osteoporosis Arthritis of right hand Colon cancer screening Dyslipidemia Hypertension Lumbar radiculitis Right hip pain Trigger finger of right hand Trochanteric bursitis of right hip Surgical History Surgical History H/O oophorectomy Family History Family History Grandparent Family history of liver disease Family history of malignant neoplasm of uterus Mother Family history of hyperthyroidism Family history of chronic obstructive pulmonary disease Father Family history of lymphoma Social History Social History Years smoked: 30 Smoking status: Former smoker Tobacco type: cigarettes Smoking end date: 01/01/97 Alcohol intake: current Drinks per week: 14 Substance use: never Substance use type: does not use Living arrangements: with family Spiritual care concerns: No Comments At the time of my signature, I reviewed and agree with the nursing past medical, surgical, social, and family history. There is no relevant family history pertinent to the patient complaint. Exam Narrative: General: Well-developed, well nourished, in no apparent distress Head: Normocephalic, atraumatic. Cardio: Regular rate and rhythm, s1 and s2 normal, no murmur appreciated. Resp: Clear to auscultation bilaterally, no rhonchi, rales, wheezing or rubs. Integumentary: [place], warm, and dry, 1 cm by 0.5 cm skin avulsion to the left 3rd lateral mid finger. Bleeding is controlled-small flap of skin was still attached and this was removed using iris scissors Course Course Emergency Course: Portions of this record may have been created with voice recognition software. Level of Care: Express Care Visit Vital Signs Vital signs: Vital signs reviewed Procedures Other Procedure Procedure 1: Other Procedure: Patient has skin avulsion with a small flap of skin attached. Verbal consent obtained to remove this piece of skin. Skin was removed using iris scissors. Patient tolerated procedure very well. Wound was cleansed with antiseptic soap and patted dry with a sterile 4 x 4. Bleeding controlled. Triple antibiotic ointment and Band-Aid applied. MDM - Wound/Laceration MDM Narrative Medical decision making narrative: At the time of visit patient is resting comfortably on the exam table. Patient has a skin avulsion to the left middle finger with very small flap piece still attached. Flap was removed using iris scissors.
[2023-01-02 16:07] VITALS: BP 126/61; PULSE 62; RESP 20; TEMP 36.1; O2SAT 96
== END 2023-01-02 16:03 | disposition home or self-care (01) ==
PROVIDERS: Emergency Provider Nurse Practitioner Family; PCP Emergency Medicine
DX: S61.203A Unspecified open wound of left middle finger without damage to nail, initial encounter (principal); W27.4XXA Contact with kitchen utensil, initial encounter; Z87.891 Personal history of nicotine dependence; M81.0 Age-related osteoporosis without current pathological fracture; E78.5 Hyperlipidemia, unspecified; I10 Essential (primary) hypertension
CPT/HCPCS: 99212; G0463

== ENCOUNTER 2023-03-16 09:00 | Outpatient (RCR) | payer MEDICARE, OTHER, SELFPAY ==
--- NOTE | 2023-01-19 10:47 | OPREHPOC ---
Outpatient Therapy Plan of Care This is a Multidisciplinary Plan of Care that may contain components documented by all disciplines (PT, OT, and ST.) PT Problem 1 PT Problem #1 Knowledge Deficit PT Goal 1 Goal 1. Patient will perform independent HEP Target Visit 6 PT Problem 2 PT Problem #2 Impaired Strength PT Goal 1 Goal 1. Patient will report no more than 1 instance of urinary incontinence per week 2. Patient will report no more than 1 instance of fecal incontinence per month PT Problem 3 PT Problem #3 Impaired Functional ADLs PT Goal 1 Goal 1. Patient will be able to perform all ADL's without needing to adjust schedule based on incontinence Target Visit 6
--- NOTE | 2023-01-19 10:48 | PTOPEVAL1 ---
Assessment and note entered by Monika Morris DPT Evaluation Information Assessment Status Evaluation Subjective Information Pt reports she is having trouble controlling BM. Has had fecal incontinence at times but not daily. May go a whole week without an issue but then the next week may have incontinence multiple times. Has been taking immodium at recommendation of [facility] which is helping. Urinates 5 times a day and 2 more times at night. Denies pain with urination. Urinary incontinence a couple times a week, wears pads. Denies pain with BM. Denies history of pelvic pain. Pt has had 1 vaginal delivery, no complications. Tubal ligation in the . No other b/b history. Fecal incontinence for years , urinary incontinence occurred more recently. Feels that she changes her schedule to work around the fecal and urinary incontinence. Patient goal: decrease incontinence, be able to walk without losing stool Reported Pain Level Pain Score 0: Self Report Assessment PT Clinical Summary The patient is presenting to skilled therapy with a several year history of fecal incontinence, and also reports urinary incontinence. She presents with greatly decreased pelvic floor muscle strength and endurance as well as decreased overall hip and core strength. These impairments are contributing to her incontinence and she will highly benefit from therapy to safely reduce symptoms and return to full function. Plan of Care Interventions Manual Therapy,Neuro Re-education,Patient/ Caregiver Education,Therapeutic Activities, Therapeutic Exercise PT Services Indicated Yes Treatment Frequency and 1 time a week for 6 visits Duration These treatments will address the objective and functional deficits as defined above. The patient will be advanced safely and appropriately in order for the patient to progress towards his/her prior level of function. Additional exercises will be introduced and as well as a comprehensive home exercise program upon discharge, if needed, ?to ensure carryover of functional gains achieved in the clinic. This treatment plan has been reviewed and agreement upon by the patient.
--- NOTE | 2023-02-07 15:32 | OPREHPOC ---
Outpatient Therapy Plan of Care This is a Multidisciplinary Plan of Care that may contain components documented by all disciplines (PT, OT, and ST.) PT Problem 1 PT Problem #1 Knowledge Deficit PT Goal 1 Goal 1. Patient will perform independent HEP Target Visit 10 Progress Partially Met PT Problem 2 PT Problem #2 Impaired Strength PT Goal 1 Goal 1. Patient will report no more than 1 instance of urinary incontinence per week 2. Patient will report no more than 1 instance of fecal incontinence per month Target Visit 10 Progress Partially Met Comment 1. Goal met 2. Not met PT Problem 3 PT Problem #3 Impaired Functional ADLs PT Goal 1 Goal 1. Patient will be able to perform all ADL's without needing to adjust schedule based on incontinence Target Visit 10 Progress Not Met
--- NOTE | 2023-02-07 15:33 | PTOPPROG ---
Assessment and note entered by Monika Morris DPT Evaluation Information Assessment Status Progress Subjective Information Pt reports she went for anal manometry this morning. Will likely not know results for a few days and then will be out of town. Is starting to notice her diet may be affecting her fecal incontinence. One instance of fecal incontinence in the last week, does not think she had any urinary incontinence. Does feel that her strength has improved so far with therapy. Assessment PT Clinical Summary The patient has made some progress in therapy and reports she feels stronger and did not have any urinary incontinence in the last week. One instance of fecal incontinence. She demonstrates improved core and hip strength and improved pelvic floor endurance, but continued weakness and difficulty rita without compensating. Due to her progress but continued incontinence she will benefit from further therapy to safely return to prior level of function. Plan of Care Interventions Manual Therapy,Neuro Re-education,Patient/ Caregiver Education,Therapeutic Activities, Therapeutic Exercise PT Services Indicated Yes Treatment Frequency and 1 visit a week for 4 visits Duration These treatments will address the objective and functional deficits as defined above. The patient will be advanced safely and appropriately in order for the patient to progress towards his/her prior level of function. Additional exercises will be introduced and as well as a comprehensive home exercise program upon discharge, if needed, ?to ensure carryover of functional gains achieved in the clinic. This treatment plan has been reviewed and agreement upon by the patient.
--- NOTE | 2023-03-02 11:05 | PCPTNOTE ---
Patient canceled appointment for 03/02/23 due to illness.
--- NOTE | 2023-03-16 09:33 | OPREHPOC ---
Outpatient Therapy Plan of Care This is a Multidisciplinary Plan of Care that may contain components documented by all disciplines (PT, OT, and ST.) PT Problem 1 PT Problem #1 Knowledge Deficit PT Goal 1 Goal 1. Patient will perform independent HEP Target Visit 10 Progress Met PT Problem 2 PT Problem #2 Impaired Strength PT Goal 1 Goal 1. Patient will report no more than 1 instance of urinary incontinence per week 2. Patient will report no more than 1 instance of fecal incontinence per month Target Visit 10 Progress Partially Met Comment 1. Goal met 2. Not met PT Problem 3 PT Problem #3 Impaired Functional ADLs PT Goal 1 Goal 1. Patient will be able to perform all ADL's without needing to adjust schedule based on incontinence Target Visit 10 Progress Partially Met
--- NOTE | 2023-03-16 09:33 | PTOPDC ---
Assessment and note entered by Monika Morris DPT Evaluation Information Assessment Status Discharge Subjective Information Pt reports she had 1 instance of urinary incontinence in the last week after not being able to go to the bathroom in time. Had fecal incontinence this morning, reports she had wine last night and possibly food that upset her stomach as well. Feels she has been doing ok with therapy so far, does her exercises at least once most days of the week. Does report that the incontinence is happening less often and is now able to identify some dietary triggers. Reported Pain Level Pain Score 0: Self Report Assessment PT Clinical Summary The patient has made some progress in therapy and reports her incontinence is happening less often and she is now better able to identify dietary triggers. She displays improved strength. Due to her progress and independence with HEP, patient reports she feels confident with discharge this visit. She has been educated to continue her HEP and follow up with MD and/or PT as needed. Plan of Care PT Services Indicated No
== END 2023-03-16 10:49 | disposition home or self-care (01) ==
LOC: ANHGOSHPT 09:00
PROVIDERS: PCP Emergency Medicine; Visit Provider Nurse Practitioner
DX: M62.89 Other specified disorders of muscle (principal); R15.9 Full incontinence of feces
CPT/HCPCS: 97110; 97112; 97162; 97530

== ENCOUNTER 2023-04-04 07:17 | Outpatient (CLI) | payer MEDICARE, OTHER, SELFPAY ==
--- NOTE | ~2023-04-04 | MM_ITS ---
EXAMINATION: MM screening [facility] BI w angely HISTORY: Screening mammogram TECHNIQUE: Craniocaudal and mediolateral oblique 3-D tomosynthesis images were obtained and synthetic 2-D images were generated. CAD analysis was submitted and interpreted. COMPARISON: 01/25/2022, 12/17/2020, 12/14/2019 BREAST PARENCHYMAL COMPOSITION: There are scattered areas of fibroglandular density. FINDINGS: No suspicious mass, calcification, or architectural distortion are identified in either patsy ast to suggest malignancy. There has been no suspicious interval change. IMPRESSION: 1. No mammographic evidence of malignancy. 2. Recommend routine screening mammography in one year. BI-RADS Category 1: Negative Reviewed, dictated and finalized at location A.
== END 2023-04-04 07:18 | disposition home or self-care (01) ==
LOC: ANHIMG 07:19
PROVIDERS: PCP Emergency Medicine; Visit Provider Emergency Medicine
DX: Z12.31 Encounter for screening mammogram for malignant neoplasm of breast (principal)
CPT/HCPCS: 77063; 77067

== ENCOUNTER → 2023-04-29 09:22 | Outpatient (CLI) | payer MEDICARE, OTHER, SELFPAY ==
--- NOTE | ~2023-04-29 | MR_ITS ---
EXAMINATION: MR lumbar spine wo con DATE: 04/29/2023 09:47 INDICATION: Radiculopathy, lumbar region. Low back pain. TECHNIQUE: Magnetic resonance imaging (MRI) of the lumbar spine was performed without intravenous con trast. Sequences included sagittal T2-weighted FSE, sagittal T2-weighted FS FSE, sagittal T1-weighted FSE, and axial T2-weighted FSE. COMPARISON: Lumbar spine MRI 05/23/2019 FINDINGS: There is 13 degrees levoscoliosis of lumbar spine. Vertebral body heights are normal. There is severely decreased disc height at L1-L2, moderately decreased disc height at L2-L3, mildly decrea sed disc height at L3-L4 and L4-L5, and severely decreased disc height at L5-S1 with endplate remodel ing. The distal spinal cord signal intensity is normal. The conus medullaris is at L1-L2. The followi ng disc levels are specifically discussed: L1-L2: The disc is bulging and has an annular fissure. There is mild bilateral facet joint osteoarthr itis. There is mild left neural foraminal stenosis. There is mild central canal stenosis. L2-L3: The disc is bulging. There is mild bilateral facet joint osteoarthritis. There is mild bilater al neural foraminal stenosis. There is mild central canal stenosis. L3-L4: The disc is bulging and has an annular fissure. There is moderate and mild left facet joint os teoarthritis. There is mild bilateral neural foraminal stenosis. There is mild central canal stenosis . L4-L5: The disc is bulging and has an annular fissure. There is severe bilateral facet joint osteoart hritis. There is mild bilateral neural foraminal stenosis. There is mild central canal stenosis. L5-S1: The disc is bulging and has an annular fissure. There is severe bilateral facet joint osteoart hritis. There is mild bilateral neural foraminal stenosis. There is mild central canal stenosis. IMPRESSION: 1. Severe lumbar spondylosis, mildly worsened from 05/23/2019. 2. Lumbar levoscoliosis. Reviewed, dictated and finalized at location E.
== END ==
PROVIDERS: PCP Nurse Practitioner Family; Visit Provider Nurse Practitioner Family
DX: M47.26 Other spondylosis with radiculopathy, lumbar region (principal)
CPT/HCPCS: 72148

== ENCOUNTER 2023-09-09 09:52 | Outpatient (CLI) | payer MEDICARE, OTHER, SELFPAY ==
[2023-09-09 11:02] LABS: Alanine Aminotransferase 21 U/L (6-35); Albumin Level 4.4 g/dL (3.5-5.1); Alkaline Phosphatase 49 U/L (38-126); Anion Gap 3 mmol/L (8-16); Aspartate Amino Transferase 28 U/L (14-36); Bilirubin,Total 1.1 mg/dL (0.2-1.3); Blood Urea Nitrogen 18 mg/dL (7-17); Calcium 9.7 mg/dL (8.4-10.2); Carbon Dioxide 32 mmol/L (22-30); Chloride 103 mmol/L (98-107); Cholesterol 214 mg/dL (0-200); Estimated Glomerular Filt Rate > 60; Glucose 111 mg/dL (65-110); HDL Direct 80 mg/dL; Potassium 4.9 mmol/L (3.4-5.0); Sodium 138 mmol/L (137-145); Triglycerides 231 mg/dL (<150)
[2023-09-09 11:24] LABS: LDL Cholesterol Direct 60 mg/dL
== END 2023-09-09 09:53 | disposition home or self-care (01) ==
LOC: ANHLAB 09:56
PROVIDERS: PCP Nurse Practitioner Family; Visit Provider Internal Medicine Cardiovascular Disease
DX: E78.5 Hyperlipidemia, unspecified (principal)
CPT/HCPCS: 36415; 80053; 80061

== ENCOUNTER 2023-09-24 07:45 | Outpatient (CLI) | payer MEDICARE, OTHER, SELFPAY ==
--- NOTE | ~2023-09-24 | DEXA_ITS ---
Bone Density Report Name: LIZETH LOPEZ Age: 73 Sex: Female Ethnicity: White Date of : 1950 Indication: postmenopausal; screening for osteoporosis; height loss; Referring Provider: DANIEL KEENE Study: Bone densitometry was performed. Exam Date: September 24, 2023 Accession number: [id number] Bone Density: Region BMD T-score Z-score Classification AP Spine(L1-L4) 0.913 -1.2 1.0 Osteopenia Femoral Neck (Left) 0.647 -1.8 0.1 Osteopenia Total Hip (Left) 0.854 -0.7 0.9 Normal Femoral Neck (Right) 0.616 -2.1 -0.2 Osteopenia Total Hip (Right) 0.897 -0.4 1.3 Normal Total Hip Mean 0.875 -0.6 1.1 Normal World Health Organization criteria for BMD impression classify patients as: Normal (T-score at or above -1.0), Osteopenia (T-score between -1.0 and -2.5), or Osteoporosis (T-score at or below -2.5). 10-year Fracture Risk: FRAX not reported because: Treated for osteoporosis Clinical Information Provided by Patient: Is being treated for osteoporosis Has used the following medications: Fosamax (i.e. alendronate), Vitamin D, Calcium Patient maximum height was 66 Menopause Age: 56 No regular weight bearing exercise Drinks caffeinated beverages Onset of menses at age 12 Number of children 1 Impression: The patient has low bone mass, based on the Right Femoral Neck T-score. Discussion: It is important to ask patients whether they are taking their medications and to encourage continued and appropriate compliance with their osteoporosis therapies to reduce fracture risk. It is also important to review their risk factors and encourage appropriate calcium and vitamin D intakes, exercise, fall prevention and other lifestyle measures. Follow-Up: Consider a repeat BMD and Vertebral Fracture Assessment (VFA) exam in 2 years or sooner if medically necessary, to reassess this patient's status. Reported by: KIARA on 09/27/2023 3:34:00 PM. Reviewed, dictated and finalized at location AYvette DIXON
== END 2023-09-24 07:46 | disposition home or self-care (01) ==
PROVIDERS: PCP Nurse Practitioner Family; Visit Provider Emergency Medicine
DX: M81.0 Age-related osteoporosis without current pathological fracture (principal); M85.88 Other specified disorders of bone density and structure, other site; M85.852 Other specified disorders of bone density and structure, left thigh; M85.851 Other specified disorders of bone density and structure, right thigh
CPT/HCPCS: 77080

== ENCOUNTER 2024-02-24 08:07 | Outpatient (CLI) | payer MEDICARE, OTHER, SELFPAY ==
[2024-02-24 18:56] LABS: Hematocrit 45.6 % (37.0-47.0); Hemoglobin 14.4 g/dL (12.0-15.0); Mean Corpuscular HGB Conc 31.6 g/dl (32-36); Mean Corpuscular Hemoglobin 29.3 pg (26-34); Mean Corpuscular Volume 92.9 fl (80-100); Mean Platelet Volume 11.4 fl (7.4-10.4); Platelet Count Result 214 k/mm3 (150-375); Red Blood Count 4.91 M/mm3 (4.2-5.4); White Blood Count 5.1 K/mm3 (4.5-10.0)
[2024-02-24 19:07] LABS: Hemoglobin A1C 6.2 % (<5.7)
[2024-02-24 19:09] LABS: Alanine Aminotransferase 21 U/L (6-35); Albumin Level 4.3 g/dL (3.5-5.1); Alkaline Phosphatase 49 U/L (38-126); Anion Gap 7 mmol/L (4-12); Aspartate Amino Transferase 47 U/L (14-36); Bilirubin,Total 0.9 mg/dL (0.2-1.3); Blood Urea Nitrogen 18 mg/dL (7-17); Calcium 9.7 mg/dL (8.4-10.2); Carbon Dioxide 31 mmol/L (22-30); Chloride 100 mmol/L (98-107); Estimated Glomerular Filt Rate > 60; Glucose 111 mg/dL (65-110); Potassium 4.3 mmol/L (3.4-5.0); Sodium 138 mmol/L (137-145)
== END 2024-02-24 08:08 | disposition home or self-care (01) ==
PROVIDERS: PCP Family Medicine; Visit Provider Family Medicine
DX: Z00.00 Encounter for general adult medical examination without abnormal findings (principal); I10 Essential (primary) hypertension; K58.9 Irritable bowel syndrome, unspecified; M25.551 Pain in right hip; M54.16 Radiculopathy, lumbar region; R73.03 Prediabetes
CPT/HCPCS: 36415; 80053; 83036; 85027

== ENCOUNTER 2024-05-28 07:59 | Outpatient (CLI) | payer MEDICARE, OTHER, SELFPAY ==
--- NOTE | ~2024-05-28 | MM_ITS ---
EXAMINATION: MM screening [facility] BI w angely HISTORY: Screening TECHNIQUE: Craniocaudal and mediolateral oblique 3-D tomosynthesis images were obtained and synthetic 2-D images were generated. CAD analysis was submitted and interpreted. COMPARISON: Comparison to multiple prior studies sequentially, with oldest reviewed study dated 10/12. BREAST PARENCHYMAL COMPOSITION: Not dense: There are scattered areas of fibroglandular density. FINDINGS: There is no evidence of suspicious mass, calcification, or architectural distortion to sugg est malignancy in either breast. There has been no suspicious interval change. IMPRESSION: 1. No mammographic evidence of malignancy. 2. Recommend routine screening mammography in one year. BI-RADS Category 1: Negative Reviewed, dictated and finalized at location B. Y COUNTER CLERK
== END 2024-05-28 08:00 | disposition home or self-care (01) ==
LOC: ANHIMG 08:00
PROVIDERS: PCP Family Medicine; Visit Provider Obstetrics & Gynecology
DX: Z12.31 Encounter for screening mammogram for malignant neoplasm of breast (principal)
CPT/HCPCS: 77063; 77067

== ENCOUNTER 2024-09-03 08:46 | Outpatient (CLI) | payer MEDICARE, OTHER, SELFPAY ==
[2024-09-03 19:43] LABS: Hematocrit 45.1 % (37.0-47.0); Hemoglobin 14.2 g/dL (12.0-15.0); Mean Corpuscular HGB Conc 31.5 g/dl (32-36); Mean Platelet Volume 11.3 fl (7.4-10.4); Platelet Count Result 249 k/mm3 (150-375); Red Blood Count 5.07 M/mm3 (4.2-5.4); Red Cell Distribution Width 13.4 % (11.5-14.5); White Blood Count 8.1 K/mm3 (4.5-10.0)
[2024-09-03 21:31] LABS: Vitamin D 25 Hydroxy 36.5 ng/mL
[2024-09-03 21:41] LABS: Hemoglobin A1C 6.1 % (<5.7)
[2024-09-03 22:25] LABS: Alanine Aminotransferase 23 U/L (6-35); Albumin Level 4.2 g/dL (3.5-5.1); Alkaline Phosphatase 63 U/L (38-126); Anion Gap 10 mmol/L (4-12); Aspartate Amino Transferase 27 U/L (14-36); Bilirubin,Total 1.1 mg/dL (0.2-1.3); Blood Urea Nitrogen 21 mg/dL (7-17); Calcium 9.6 mg/dL (8.4-10.2); Carbon Dioxide 28 mmol/L (22-30); Chloride 102 mmol/L (98-107); Cholesterol 150 mg/dL (0-200); Estimated Glomerular Filt Rate > 60; Glucose 109 mg/dL (65-110); HDL Direct 71 mg/dL; Potassium 4.4 mmol/L (3.4-5.0); Sodium 140 mmol/L (137-145); Triglycerides 190 mg/dL (<150)
[2024-09-03 23:57] LABS: LDL Cholesterol Direct < 30 mg/dL
== END 2024-09-03 08:47 | disposition home or self-care (01) ==
PROVIDERS: PCP Family Medicine; Visit Provider Family Medicine
DX: E87.5 Hyperkalemia (principal); M25.551 Pain in right hip; E83.52 Hypercalcemia; I10 Essential (primary) hypertension; K58.9 Irritable bowel syndrome, unspecified; R73.9 Hyperglycemia, unspecified; I49.9 Cardiac arrhythmia, unspecified; R00.1 Bradycardia, unspecified; M54.16 Radiculopathy, lumbar region
CPT/HCPCS: 36415; 80053; 80061; 82306; 82607; 83036; 85027

== ENCOUNTER 2024-09-10 08:29 | Outpatient (CLI) | payer MEDICARE, OTHER, SELFPAY ==
--- OUTSIDE RECORDS SUMMARY | 2024-09-10 08:57 | XMS_ITS | Patient Health Summary ---
Author Organization [facility] Address [address] [place] [address] Care Team Providers Care Robotics Technologist Name Role Phone Declan Rolon MD Unavailable [phone] Ehsan Cruz MD Primary Care Provider [phone] Note from [facility],non-owned Affiliates and Associated Physician Practices is amultiple site organization consisting of ambulatory clinics and hospital sitesin [place], [place], [place]. This disclosure is being madepursuant to the Care Everywhere program and may not contain all information available regarding this patient. Last updated 18.[facility] Allergies No known active allergies Medications * Be aware that medications may not be up to date on this document. Alwaysverify current medications with the patient. * LISINOPRIL PO * benzonatate (TESSALON) 100 MG capsule(Started 11/07/2016) Take 1 Cap by mouth 3 times daily as needed for Cough * methylPREDNISolone (MEDROL DOSEPAK) 4 MG tablet(Started 11/07/2016) 1 dose pack PO as directed on package Social History Tobacco Use Types Packs/Day Years Used Date Smoking Tobacco: Former Sex and Gender Information Value Date Recorded Sex Assigned at Not on file Gender Identity Not on file Sexual Orientation Not on file Last Filed Vital Signs Vital Sign Reading Time Taken Comments Blood Pressure 136/88 11/07/2016 12:49 PM CDT Pulse 66 11/07/2016 12:49 PM CDT Temperature 36.9 C (98.4 F) 11/07/2016 12:49 PM CDT Respiratory Rate 16 11/07/2016 12:49 PM CDT Oxygen Saturation 95% 11/07/2016 12:49 PM CDT Inhaled Oxygen Concentration - - Weight 85.3 kg (188 lb) 11/07/2016 12:49 PM CDT Height 165.1 cm (5' 5 ) 11/07/2016 12:49 PM CDT Body Mass Index 31.28 11/07/2016 12:49 PM CDT Procedures * DERMATOPATHOLOGY(Performed 04/16/2024) * DERMATOPATHOLOGY(Performed 10/18/2018) Results * DERMATOPATHOLOGY (04/16/2024 9:18 AM CDT) Only the most recent of2 resultswithin the time period is included. Case Report Dermatopathology Report Case: [id number] Authorizing Provider: Claribel Baez DO Collected: 04/16/2024 09:18 AM Ordering Location: [facility] - Received: 04/16/2024 02:58 PM DermPath Lab Pathologist: Esther Crawford MD Specimen: Skin, left mid back 2:01 PM CDT DERMATOPATHOLOGY LABORATORY Final Diagnosis Specimen A. SKIN, left mid back: INTRADERMAL MELANOCYTIC NEVUS (D22.5) DERMAL SCAR (L90.5) 2:01 PM CDT DERMATOPATHOLOGY LABORATORY Clinical History Scaar vs BCC 2:01 PM CDT DERMATOPATHOLOGY LABORATORY Gross Description Specimen A: Received is one formalin filled container labeled with the patient's name and designated left mid back. The specimen consists of a shave biopsy measuring 8x5x1 mm. Jar 0. 2:01 PM CDT DERMATOPATHOLOGY LABORATORY Microscopic Description Specimen A. SKIN, left mid back: There are nests of cytologically bland melanocytes within the dermis that mature with depth. There are adjacent fibroblasts and collagen bundles oriented parallel to the skin surface with elongated blood vessels, some of which are oriented perpendicular to the skin surface. 2:01 PM CDT DERMATOPATHOLOGY LABORATORY Disclaimer An external and internal positive and negative controls are appropriate for the histochemical, immunohistochemical and immunofluorescence stain(s) in this case (if any), except where stated explicitly. The performance characteristics of the stain(s) cited in this report were developed and its performance characteristic determined by the Dermatopathology Laboratory at [facility], directed by Dr. Jaqueline Berman. These tests need not be, and therefore are not, approved by the [place] Food and Drug Administration. The tests are used for clinical purposes. Billing Codes Specimen Charges Stain Charges 10100 1 4 2:01 PM CDT DERMATOPATHOLOGY LABORATORY Embedded Images 2:01 PM CDT DERMATOPATHOLOGY LABORATORY Pathology/Cytolo gy TISSUE SPECIMEN FROM SKIN / Unknown 04/16/2024 9:18 AM CDT 04/16/2024 2:58 PM CDT Claribel Baez DO LAB - PATHOLOGY/C YTOLOGY ORDERABLES DERMATOPATHOLOGY LABORATORY [facility] - Department of Dermatology [facility] [address] [facility] [phone] Care Teams Robotics Technologist Relationship Specialty [place] [id number] [phone] PCP - General 05/13/22 Declan Rolon MD [address] [place] [address] Internal Medicine 10/18/18
--- OUTSIDE RECORDS SUMMARY | 2024-09-10 08:57 | XMS_ITS | Encounter Summary ---
Author Organization [facility] Address [address] [place] [address] Care Team Providers Care Band Sewer Name Role Phone Declan Rolon MD Unavailable [phone] Ehsan Cruz MD Primary Care Provider [phone] Encounter Details Date Type Department Care Team (Late st Contact Info) Description 04/16/2024 Lab Requisition [facility] - DermPath Lab [address] [facility] [address] [facility] [place] [address] Claribel Baez DO [address] [facility] [address] [place] [address] Social History Tobacco Use Types Packs/Day Years Used Date Smoking Tobacco: Former Sex and Gender Information Value Date Recorded Sex Assigned at Not on file Gender Identity Not on file Sexual Orientation Not on file documented as of this encounter Plan of Treatment Not on file documented as of this encounter Procedures Procedure Name Priority Date/Time Associated Diagnosis Comments DERMATOPATHOLOGY Routine 04/16/2024 9:18 AM CDT documented in this encounter Results * DERMATOPATHOLOGY (04/16/2024 9:18 AM CDT) Case Report Dermatopathology Report Case: [id number] Authorizing Provider: Claribel Baez DO Collected: 04/16/2024 09:18 AM Ordering Location: [facility] - Received: 04/16/2024 02:58 PM [...] characteristic determined by the Dermatopathology Laboratory at [facility], directed by Dr. Jaqueline Berman. These tests need not be, and therefore are not, approved by the [place] Food and Drug Administration. The tests are used for clinical purposes. Billing Codes Specimen Charges Stain Charges 23199 1 2:01 PM CDT DERMATOPATHOLOGY LABORATORY Embedded Images 2:01 PM CDT DERMATOPATHOLOGY LABORATORY Pathology/Cytolo gy TISSUE SPECIMEN FROM SKIN / Unknown 04/16/2024 9:18 AM CDT 04/16/2024 2:58 PM CDT Claribel Baez DO LAB - PATHOLOGY/C YTOLOGY ORDERABLES DERMATOPATHOLOGY LABORATORY [facility] - Department of Dermatology [facility] Medicine [address] [facility]rd [address] [phone] documented in this encounter Visit Diagnoses Not on filedocumented in this encounter Care Teams Band Sewer Relationship Specialty Start [place] [address] [facility] [address] [place] [address] PCP - General 05/13/22 Declan Rolon MD [address] [place] [address] Internal Medicine 10/18/18 documented as of this encounter
--- OUTSIDE RECORDS SUMMARY | 2024-09-10 08:57 | XMS_ITS | Referral Summary ---
Author Organization [facility] Address [address] [place] [place] [address] Care Team Providers Care Back Filler Operator Name Role Phone Declan Rolon MD Unavailable [phone] Ehsan Cruz MD Primary Care Provider [phone] Source Comments [facility],non-owned Affiliates and Associated Physician Practices is amultiple site organization consisting of ambulatory clinics and hospital sitesin [place], [place]. This disclosure is being madepursuant to the Care Everywhere program and may not contain all information available regarding this patient. Last updated 18.[facility] Allergies No known active allergies Medications * Be aware that medications may not be up to date on this document. Alwaysverify current medications with the patient. Medication Sig Dispensed Refills Start Date End Date Status LISINOPRIL PO Active benzonatate (TESSALON) 100 MG capsule Take 1 Cap by mouth 3 times daily as needed for Cough 30 Cap 11/07/2016 Active methylPREDNISolone (MEDROL DOSEPAK) 4 MG tablet 1 dose pack PO as directed on package 1 Each 11/07/2016 Active Social History Tobacco Use Types Packs/Day Years [...] Mass Index 31.28 11/07/2016 12:49 PM CDT Plan of Treatment Not on file Care Teams Back Filler Operator Relationship Specialty [place] [id number] [address] PCP - General 05/13/22 Declan Rolon MD [address] [place] [address] Internal Medicine 10/18/18
--- OUTSIDE RECORDS SUMMARY | 2024-09-10 08:57 | XMS_ITS | Clinical Summary ---
Author Organization [facility] Address [address] [place] [place] [address] Care Team Providers Care Sanforizing Machine Operator Name Role Phone Declan Rolon MD Unavailable [phone] Ehsan Cruz MD Primary Care Provider [phone] Source Comments [facility],non-owned Affiliates and Associated Physician Practices is amultiple site organization consisting of ambulatory clinics and hospital sitesin [place], [place], [place] and [place]. This disclosure is being madepursuant to the Care Everywhere program and may not contain all information available regarding this patient. Last updated 18.[facility] Allergies No known active allergies Medications * [...] 11/07/2016 12:49 PM CDT Plan of Treatment Health Maintenance Due Date Last Done Comments BONE DENSITY TESTING 1950 COLOGUARD (AGES 45-75) - COL ON CA SCREENING 1951 COLON MONITORING 1950 COLONOSCOPY - COLON CA SCREENING 1951 CT COLONOGRAPHY - COLON CA SCREENING 1950 Colorectal Cancer Screening 1950 FIT - COLON CA SCREENING 1951 FLEX SIG - COLON CA SCREENING 1950 LIPID TESTING 1950 MAMMOGRAM 1950 MEDICARE AWV 12 MONTHS 1951 HEPATITIS C SCREENING 04/21/1969 DTAP/TDAP/TD VACCINES (1 - Tdap) 1970 PNEUMOCOCCAL VACCINE 50+ (1 of 1 - PCV) 2001 ZOSTER VACCINE (1 of 2) 2001 COVID-19 VACCINE ( - 2023-2 5 season) 2024 INFLUENZA VACCINE (#1) 2024 DEPRESSION SCREENING 07/04/2024 Respiratory Syncytial Virus (RSV) Vaccine Pt: or over 60 yrs (1 - 1-dose 75+ series) 2026 HEPATITIS B VACCINE Aged Out No longe r eligible based on patient's age to complete this topic HIB VACCINE Aged Out No longer eligi ble based on patient's age to complete this topic HPV VACCINE Aged Out No longer eligi ble based on patient's age to complete this topic MENINGOCOCCAL (Group B) VACCINE Aged Out No longer eligible based on patient's age to complete this topic MENINGOCOCCAL VACCINE Aged Out No vane ajit eligible based on patient's age to complete this topic Care Teams Sanforizing Machine Operator Relationship Specialty [place] [address] [address] PCP - General 05/13/22 Declan Rolon MD [address] [place] [address] Internal Medicine 10/18/18
--- OUTSIDE RECORDS SUMMARY | 2024-09-10 08:57 | XMS_ITS | Clinical Summary ---
Author Organization [facility] Address [address] [place] [address] Care Team Providers Care Lard Refiner Name Role Phone Hernan Fernandez DO Primary Care Provider [phone] Allergies No known active allergies Medications metoprolol tartrate (LOPRESSOR) 25 mg immediate release tablet Take 1 tablet (25 mg total) by mouth 2 (two) times a day Active lisinopriL (PRINIVIL,ZESTR IL) 20 mg tablet Take 1 tablet (20 mg total) by mouth daily Active cholecalciferol (VITAMIN D-3) 04962 unit capsule Take 1 capsule (10,000 Units total) by mouth daily Active omega-3 fatty acids-fish oil 300-1,000 mg capsule Take 2 capsules (2 g total) by mouth daily Active alendronate (FOSAMAX) 70 mg tablet Take 1 tablet (70 mg total) by mouth every 7 days Take in the morning with a full glass of water, on an empty stomach, and do not take anything else by mouth or lie down for the next 30 min. Active calcium citrate (CALCITRATE) 950 mg (200 mg of elemental calcium) tablet Take 1 tablet (950 mg total) by mouth daily Active Surgical History Surgery Date Site/Laterality Comments OOPHORECTOMY Medical History Medical History Date Comments Osteoporosis Arthritis Dyslipidemia Hypertension Lumbar radiculitis Pelvic floor dysfunction in female Right hip pain Trigger finger of right hand Trochanteric bursitis of right hip Social History Tobacco Use Types Packs/Day Years Used Date Smoking Tobacco: Former Cigarettes Tobacco Cessation:Counseling Given: Not Answered Personal Safety Answer Date Recorded Getting School Help Needed Not on file 09/16 Comments Unknown Sex and Gender Information Value Date Recorded Sex Assigned at Not on file 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 Gender Identity Not on file Sexual Orientation Not on file Obstetrics History Plan of Treatment Health Maintenance Due Date Last Done Comments Breast Cancer Screening-Mammogram 1951 Colon Cancer Screening-Colonoscopy 1951 Depression Screening 1951 Fall Risk Assessment 1951 Hepatitis C Screening 1951 Osteoporosis Screening-Bone Density Scan 1951 Hepatitis B Screening 1969 Well Visit 65+ 2016 Zoster Vaccine (2 of 3) 06/22/2019 04/27/2019, 01/10 Covid-19 Vaccine (6 2023-2 5 season) 2024 03/11/2022, 10/10/2021, 04/24/2021, Additional history exists Influenza Vaccine (#1) 2024 , 03/12/2021, 04/07/2019, Additional history exists DTaP/Tdap/Td Vaccine (2 - Td or Tdap) 06/12/2029 06/12/2019 Pneumococcal vaccine 65+ Completed 04/27/2019, 04/03 Insurance MEDICARE [employer] MEDICARE [facility] Care Teams Lard Refiner Relationship Specialty Start Date End Date Hernan Fernandez DO PCP - General 11/18/14
--- OUTSIDE RECORDS SUMMARY | 2024-09-10 08:57 | XMS_ITS | Encounter Summary ---
Author Organization [facility] Address [address] [facility] [place] [address] Care Team Providers Care Export Sales Assistant Name Role Phone [address] Primary Care Prov ider Declan Rolon MD Unavailable [phone] Ehsan Cruz MD Primary Care Provider [phone] Encounter Details Date Type Department Care Team (Late st Contact Info) Description 10/19/2018 Lab Requisition [facility] Care DermPath Lab [address] [facility] [place] [address] Claribel Baez DO [address] [facility] 3 [place] [address] Social History Tobacco Use Types Packs/Day Years Used Date Smoking Tobacco: Never Assessed Sex and Gender Information Value Date Recorded Sex Assigned at Not on file Gender Identity Not on file Sexual Orientation Not on file documented as of this encounter Plan of Treatment Not on file documented as of this encounter Procedures Procedure Name Priority Date/Time Associated Diagnosis Comments DERMATOPATHOLOGY Routine 10/18/2018 12:0 0 AM CDT documented in this encounter Results * DERMATOPATHOLOGY (10/18/2018 12:00 AM CDT) Case Report Dermatopathology Report Case: [id number] Authorizing Provider: Claribel Baez DO Collected: 10/18/2018 12:00 AM Pathologist: Marley Deutsch MD Received: 10/19/2018 12:22 PM Specimen: Skin, left FA 12:20 PM CDT DERMATOPATHOLOGY LABORATORY Final Diagnosis Specimen A. SKIN, left FA: BLUE NEVUS, SCLEROTIC TYPE, SUPERFICIAL PORTIONS OF (D22.62) 12:20 PM CDT DERMATOPATHOLOGY LABORATORY Clinical History R/O blue nevus vs atypia irregular color 12:20 PM CDT DERMATOPATHOLOGY LABORATORY Gross Description Specimen A: Received is one formalin filled container labeled with the patient's name and designated left FA. The specimen consists of a shave biopsy measuring 7x6x1 mm. Jar 0. 12:20 PM CDT DERMATOPATHOLOGY LABORATORY Microscopic Description Specimen A. SKIN, left FA: Within the dermis amongst course collagen bundles there are oval, spindle-shaped and dendritic melanocytes with melanophages. Only the superficial portions of the lesion is seen. 12:20 PM CDT DERMATOPATHOLOGY LABORATORY Disclaimer An external and internal positive and negative controls are appropriate for the histochemical, immunohistochemical and immunofluorescence stain(s) in this case (if any), except where stated explicitly. The performance characteristics of the stain(s) cited in this report were developed and its performance characteristic determined by the Dermatopathology Laboratory at [facility], directed by Dr. Jaqueline Berman. These tests need not be, and therefore are not, approved by the [place] Food and Drug Administration. The tests are used for clinical purposes. Billing Codes Specimen Charges Stain Charges 84638 1 12:20 PM CDT DERMATOPATHOLOGY LABORATORY Embedded Images 12:20 PM CDT DERMATOPATHOLOGY LABORATORY Pathology/Cytolog y TISSUE SPECIMEN FROM SKIN / Unknown 10/18/2018 10/19/2018 12:22 PM CDT Claribel Baez DO LAB - PATHOLOGY/C YTOLOGY ORDERABLES DERMATOPATHOLOGY LABORATORY [facility] - Department of Dermatology [facility] [facility], 5th Floor Lab B [address] [phone] documented in this encounter Visit Diagnoses Not on filedocumented in this encounter Care Teams Export Sales Assistant Relationship Specialty Start Date End Date [facility] [address] [place] [address] PCP - General 10/18/18 05/12/22 [place] [address] [phone] PCP - General 05/13/22 Declan Rolon MD [address] [place] [address] Internal Medicine 10/18/18 documented as of this encounter
--- OUTSIDE RECORDS SUMMARY | 2024-09-10 08:57 | XMS_ITS | Referral Summary ---
Author Organization [facility] Address [address] [place] [address] Care Team Providers Care Abstract Searcher Name Role Phone Hernan Fernandez DO Primary Care Provider [phone] Allergies No known active allergies Medications metoprolol tartrate (LOPRESSOR) 25 mg immediate release tablet Take 1 tablet (25 mg total) by mouth 2 (two) times a day Active lisinopriL (PRINIVIL,ZESTR IL) 20 mg tablet Take 1 tablet (20 mg total) by mouth daily Active cholecalciferol (VITAMIN D-3) 07996 unit capsule Take 1 capsule (10,000 Units [...] (950 mg total) by mouth daily Active Social History Tobacco Use Types Packs/Day Years Used Date Smoking Tobacco: Former Cigarettes Tobacco Cessation:Counseling Given: Not Answered Personal Safety Answer Date Recorded Getting School Help Needed Not on file 09/16 Comments Unknown Sex and Gender Information Value Date Recorded Sex Assigned at Not on file 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
[2024-09-10 19:19] LABS: Iron 110 ug/dL (37-170)
[2024-09-10 19:28] LABS: Percent Iron Saturation 37 % (20-50)
== END 2024-09-10 08:30 | disposition home or self-care (01) ==
PROVIDERS: PCP Family Medicine; Visit Provider Family Medicine
DX: G25.81 Restless legs syndrome (principal); E61.1 Iron deficiency
CPT/HCPCS: 36415; 82607; 83540; 83550; 83735

== ENCOUNTER 2024-12-05 09:48 | Outpatient (CLI) | payer MEDICARE, OTHER, SELFPAY ==
--- OUTSIDE RECORDS SUMMARY | 2024-12-05 10:02 | XMS_ITS | Clinical Summary ---
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
--- OUTSIDE RECORDS SUMMARY | 2024-12-05 10:02 | XMS_ITS | Clinical Summary ---
Author Organization [facility] [employer] Address [address] [place] [address] Care Team Providers Care Communications Analyst Name Role Phone Declan Rolon MD Unavailable [phone] Ehsan Cruz MD Primary Care Provider [phone] Source Comments [facility] [employer],non-owned Affiliates and Associated Physician Practices is amultiple site organization consisting of ambulatory clinics and hospital sitesin [place], [place], [place] and [place]. This disclosure is being madepursuant to the Care Everywhere program and may not contain all information available regarding this patient. Last updated 18.[facility] [employer] Allergies No known active allergies Medications * Be aware that medications may not be up to date on this document. Alwaysverify current medications with the patient. LISINOPRIL PO Active benzonatate (TESSALON) 100 MG capsule Take 1 Cap by mouth 3 times daily as needed for Cough 30 Cap 11/07/2016 Active methylPREDNISol one (MEDROL DOSEPAK) 4 MG tablet 1 dose pack PO as directed on package 1 Each 11/07/2016 Active Social History Tobacco Use Types Packs/Day Years Used Date Smoking Tobacco: Former Comments Unknown Sex and Gender Information Value Date Recorded Sex Assigned at Not on file Legal Sex Female 12:26 PM CDT Gender Identity Not on file Sexual Orientation [...] 12:49 PM CDT Height 165.1 cm (5' 5) 11/07/2016 12:49 PM CDT Body Mass Index [...] VACCINE (1 of 2) 2001 COVID-19 VACCINE (1 - 2023-2 5 season) 2024 DEPRESSION SCREENING 07/04/2024 INFLUENZA VACCINE (Season Ended) 2025 Respiratory Syncytial Virus (RSV) Vaccine Pt: or [...] to complete this topic MENINGOCOCCAL (Group B) VACC INE SHARED DECISION-MAKING Aged Out No longer eligibl e based on patient's age to complete this topic MENINGOCOCCAL GROUPS A/C/Y/W VACCINE Aged Out No longer eligible b ased on patient's age to complete this topic Insurance MEDICARE MEDICARE [facility] MEDICARE Care Teams Communications Analyst Relationship Specialty [place] [address] [address] PCP - General 05/13/22 Declan Rolon MD [address] [place] [address] Internal Medicine 10/18/18
--- OUTSIDE RECORDS SUMMARY | 2024-12-05 10:02 | XMS_ITS | Referral Summary ---
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
--- OUTSIDE RECORDS SUMMARY | 2024-12-05 10:02 | XMS_ITS | Encounter Summary ---
Author Organization [facility] Address [address] [place] [address] Care Team Providers Care Cardiology Consultant Name Role Phone [address] Primary Care Prov ider Declan Rolon MD Unavailable [phone] Ehsan Cruz MD Primary Care Provider [phone] Encounter Details Date Type Department Care Team (Late st Contact Info) Description 10/19/2018 Lab Requisition [facility] Care DermPath Lab [address] [facility], [place] [address] Claribel Baez DO [address] [facility] 3 [place] [address] Social History Tobacco Use Types Packs/Day Years Used Date Smoking Tobacco: Never Assessed Comments Unknown Sex and Gender Information Value [...] AM CDT) Case Report Dermatopathology Report Case: [id number] Authorizing Provider: Claribel aBez DO Collected: 10/18/2018 12:00 AM Pathologist: Marley Deutsch MD Received: 10/19/2018 12:22 PM Specimen: Skin, left FA 12:20 PM CDT DERMATOPATHOLOGY LABORATORY Final Diagnosis Specimen A. SKIN, left FA: BLUE NEVUS, SCLEROTIC TYPE, SUPERFICIAL PORTIONS OF (D22.62) 12:20 PM CDT DERMATOPATHOLOGY LABORATORY at 1220 CDT Clinical History R/O blue nevus vs atypia [...] characteristic determined by the Dermatopathology Laboratory at [facility], directed by Dr. Jaqueline Berman. These tests need not be, and therefore are not, approved by the [place] Food and Drug Administration. The tests are used for clinical purposes. Billing Codes Specimen Charges Stain Charges 85281 1 12:20 PM CDT DERMATOPATHOLOGY LABORATORY Embedded Images 12:20 PM CDT DERMATOPATHOLOGY LABORATORY Pathology/Cytolog y TISSUE SPECIMEN FROM SKIN / Unknown 10/18/2018 10/19/2018 12:22 PM CDT us Claribel Baez DO LAB - PATHOLOGY/CYTOLOGY ORDERABLES Final Result DERMATOPATHOLOGY LABORATORY [facility] - Department of Dermatology [address] [facility], 5th Floor Lab [address] [place], [place] [address] [phone] documented in this encounter Visit Diagnoses Not on filedocumented in this encounter Care Teams Cardiology Consultant Relationship Specialty Start Date End Date [facility], [facility] [address] [facility], [place] [address] PCP - General 10/18/18 05/12/22 [place] [address] [facility] [address] [place] [address] PCP - General 05/13/22 Declan Rolon MD [address] [place] [address] Internal Medicine 10/18/18 documented as of this encounter
--- OUTSIDE RECORDS SUMMARY | 2024-12-05 10:02 | XMS_ITS | Encounter Summary ---
Author Organization [facility] Address [address] [facility] [place] [address] Care Team Providers Care Unhairer Name Role Phone Declan Rolon MD Unavailable Ehsan Cruz MD Primary Care Provider [phone] Encounter Details Date Type Department Care Team (Late st Contact Info) Description 04/16/2024 Lab Requisition [facility] - DermPath Lab [address] [facility], [place] [address] Claribel Baez DO [address] [facility] 3 [place] [address] Social History Tobacco Use Types Packs/Day Years [...] AM CDT) Case Report Dermatopathology Report Case: [id number] Authorizing Provider: Claribel Baez DO Collected: 04/16/2024 09:18 AM Ordering Location: [facility] - Received: 04/16/2024 02:58 PM DermPath Lab Pathologist: Esther Crawford MD Specimen: Skin, left mid back 2:01 PM CDT DERMATOPATHOLOGY LABORATORY Final Diagnosis Specimen A. SKIN, left mid back: INTRADERMAL MELANOCYTIC NEVUS (D22.5) DERMAL SCAR (L90.5) 2:01 PM CDT DERMATOPATHOLOGY LABORATORY at 1401 CDT Clinical History Scaar vs BCC 2:01 PM [...] characteristic determined by the Dermatopathology Laboratory at [facility], directed by Dr. Jaqueline Berman. These tests need not be, and therefore are not, approved by the [place] Food and Drug Administration. The tests are used for clinical purposes. Billing Codes Specimen Charges Stain Charges 95295 1 2:01 PM CDT DERMATOPATHOLOGY LABORATORY Embedded Images 2:01 PM CDT DERMATOPATHOLOGY LABORATORY Pathology/Cytolo gy TISSUE SPECIMEN FROM SKIN / Unknown 04/16/2024 9:18 AM CDT 04/16/2024 2:58 PM CDT Claribel Baez DO LAB - PATHOLOGY/CYTOLOGY ORDERABLES Final Result DERMATOPATHOLOGY LABORATORY [facility] - Department of Dermatology [facility] Medicine [address] [facility], 3rd Floor [address] [phone] documented in this encounter Visit Diagnoses Not on filedocumented in this encounter Care Teams Unhairer Relationship Specialty [place] [address] [facility] [address] [place] [address] PCP - General 05/13/22 [place] [address] [place] [address] Internal Medicine 10/18/18 documented as of this encounter
[2024-12-05 21:24] LABS: Free T4 Free Thyroxine 1.08 ng/dL (0.78-2.19)
[2024-12-05 21:59] LABS: Thyroid Stimulating Hormone 0.895 uIU/mL (0.465-4.680); Total Triiodothyronine (T3) 1.03 NG/ML (0.82-1.58)
== END 2024-12-05 09:49 | disposition home or self-care (01) ==
PROVIDERS: PCP Family Medicine; Visit Provider Internal Medicine Cardiovascular Disease
DX: R94.31 Abnormal electrocardiogram [ECG] [EKG] (principal); I49.1 Atrial premature depolarization; I49.9 Cardiac arrhythmia, unspecified; R00.2 Palpitations; G47.33 Obstructive sleep apnea (adult) (pediatric); E78.5 Hyperlipidemia, unspecified; Z86.79 Personal history of other diseases of the circulatory system; Z87.891 Personal history of nicotine dependence
CPT/HCPCS: 36415; 84439; 84443; 84480

== ENCOUNTER 2024-12-14 08:49 | Outpatient (CLI) | payer MEDICARE, OTHER, SELFPAY ==
--- OUTSIDE RECORDS SUMMARY | 2024-12-14 08:55 | XMS_ITS | Encounter Summary ---
Author Organization [facility] Address [address] [facility] [place] [address] Care Team Providers Care Liquid Compounder Name Role Phone Declan Rolon MD Unavailable [phone] Ehsan Cruz MD Primary Care Provider [phone] Encounter Details Date Type Department Care Team (Late st Contact Info) Description 04/16/2024 Lab Requisition [facility] - DermPath Lab [address] [facility], [place] [address] Claribel Baez DO [address] [facility] 3 [place] [address] Social History Tobacco Use Types Packs/Day Years [...] AM CDT) Case Report Dermatopathology Report Case: [id number] Authorizing Provider: Claribel Baez DO Collected: 04/16/2024 09:18 AM Ordering Location: [facility] - Received: 04/16/2024 02:58 PM [...] characteristic determined by the Dermatopathology Laboratory at [facility], directed by Dr. Jaqueline Berman. These tests need not be, and therefore are not, approved by the [place] Food and Drug Administration. The tests are used for clinical purposes. Billing Codes Specimen Charges Stain Charges 47742 1 2:01 PM CDT DERMATOPATHOLOGY LABORATORY Embedded Images 2:01 PM CDT DERMATOPATHOLOGY LABORATORY Pathology/Cytolo gy TISSUE SPECIMEN FROM SKIN / Unknown 04/16/2024 9:18 AM CDT 04/16/2024 2:58 PM CDT Claribel Baez DO LAB - PATHOLOGY/CYTOLOGY ORDERABLES Final Result DERMATOPATHOLOGY LABORATORY [facility] - Department of Dermatology [facility] Medicine [address] [facility], 3rd Floor [address] [phone] documented in this encounter Visit Diagnoses Not on filedocumented in this encounter Care Teams Liquid Compounder Relationship Specialty [place] [address] [facility] [address] [place] [address] PCP - General 05/13/22 [place] [address] [place] [phone] Internal Medicine 10/18/18 documented as of this encounter
--- OUTSIDE RECORDS SUMMARY | 2024-12-14 08:55 | XMS_ITS | Clinical Summary ---
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
--- OUTSIDE RECORDS SUMMARY | 2024-12-14 08:55 | XMS_ITS | Clinical Summary ---
Author Organization [facility] Address [address] [facility] [place] [address] Care Team Providers Care Staff Anesthetist Name Role Phone Declan Rolon MD Unavailable [phone] Ehsan Cruz MD Primary Care Provider [phone] Source Comments [facility],non-owned Affiliates and Associated Physician Practices is amultiple site organization consisting of ambulatory clinics and hospital sitesin [place], [place], [place] and [place]. This disclosure is being madepursuant to the Care Everywhere program and may not contain all information available regarding this patient. Last updated 18.[facility] Allergies No known active allergies Medications * [...] to complete this topic Insurance MEDICARE MEDICARE [facility] MEDICARE Care Teams Staff Anesthetist Relationship Specialty [place] [id number] [address] PCP - General 05/13/22 Declan Rolon MD [address] [place] [address] Internal Medicine 10/18/18
--- OUTSIDE RECORDS SUMMARY | 2024-12-14 08:55 | XMS_ITS | Referral Summary ---
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
--- OUTSIDE RECORDS SUMMARY | 2024-12-14 08:55 | XMS_ITS | Encounter Summary ---
Author Organization [facility] Address [address] [facility] [place] [address] Care Team Providers Care Carton Filler Name Role Phone [address] Primary Care Prov ider Declan Rolon MD Unavailable [phone] Ehsan Cruz MD Primary Care Provider [phone] Encounter Details Date Type Department Care Team (Late st Contact Info) Description 10/19/2018 Lab Requisition [facility] Care DermPath Lab [address] [facility] [place] [address] Claribel Baez DO [address] [facility] [address] [place] [address] Social History Tobacco Use Types Packs/Day Years [...] AM CDT) Case Report Dermatopathology Report Case: [id number] Authorizing Provider: Claribel Baez DO Collected: 10/18/2018 [...] characteristic determined by the Dermatopathology Laboratory at [facility], directed by Dr. Jaqueline Berman. These tests need not be, and therefore are not, approved by the [place] Food and Drug Administration. The tests are used for clinical purposes. Billing Codes Specimen Charges Stain Charges 86602 1 12:20 PM CDT DERMATOPATHOLOGY LABORATORY Embedded Images 12:20 PM CDT DERMATOPATHOLOGY LABORATORY Pathology/Cytolog y TISSUE SPECIMEN FROM SKIN / Unknown 10/18/2018 10/19/2018 12:22 PM CDT us Claribel Baez DO LAB - PATHOLOGY/CYTOLOGY ORDERABLES Final Result DERMATOPATHOLOGY LABORATORY [facility] - Department of Dermatology [address] [facility], 5th Floor Lab [address] [place], [place] [address] [phone] documented in this encounter Visit Diagnoses Not on filedocumented in this encounter Care Teams Carton Filler Relationship Specialty Start Date End Date Clinic[facility]p, [facility] [address] [facility], [place] [address] PCP - General 10/18/18 05/12/22 [place] [address] [facility] [address] [place] [address] PCP - General 05/13/22 Declan Rolon MD [address] [place] [address] Internal Medicine 10/18/18 documented as of this encounter
[2024-12-14 09:42] LABS: Basophils Absolute Auto 0.1 K/mm3 (0.0-0.1); Basophils Percent Auto 0.9 % (0.2-1.2); Eosinophils Absolute Auto 0.1 K/mm3 (0-0.3); Eosinophils Percent Auto 0.9 % (0-4.4); Hematocrit 46.5 % (37.0-47.0); Hemoglobin 14.7 g/dL (12.0-15.0); Immature Granulocyte Absolute 0.02 K/mm3 (0.00-0.031); Immature Granulocyte Percent A 0.3 % (0-0.5); Lymphocytes Absolute Auto 1.91 K/mm3 (0.9-3.2); Lymphocytes Percent Auto 28.4 % (18.3-44.2); Mean Corpuscular HGB Conc 31.6 g/dl (32-36); Mean Corpuscular Hemoglobin 28.4 pg (26-34); Mean Corpuscular Volume 89.9 fl (80-100); Mean Platelet Volume 10.4 fl (7.4-10.4); Monocytes Absolute Auto 0.5 K/mm3 (0.1-0.6); Monocytes Percent Auto 7.7 % (2.6-8.5); Neutrophils Absolute Auto 4.2 K/mm3 (1.3-6.7); Neutrophils Percent Auto 61.8 % (45.5-73.1); Platelet Count Result 254 k/mm3 (150-375); Red Blood Count 5.17 M/mm3 (4.2-5.4); Red Cell Distribution Width 13.9 % (11.5-14.5); White Blood Count 6.7 K/mm3 (4.5-10.0)
[2024-12-14 09:55] LABS: INR 0.9; Prothrombin Time 12.6 Seconds (11.1-14.7)
[2024-12-14 10:29] LABS: Anion Gap 5 mmol/L (4-12); Blood Urea Nitrogen 21 mg/dL (7-17); Calcium 10.1 mg/dL (8.4-10.2); Carbon Dioxide 31 mmol/L (22-30); Chloride 102 mmol/L (98-107); Estimated Glomerular Filt Rate > 60; Glucose 115 mg/dL (65-110); Potassium 4.7 mmol/L (3.4-5.0); Sodium 138 mmol/L (137-145)
== END 2024-12-14 08:50 | disposition home or self-care (01) ==
PROVIDERS: PCP Family Medicine; Visit Provider Internal Medicine Cardiovascular Disease
DX: R94.39 Abnormal result of other cardiovascular function study (principal); R06.02 Shortness of breath
CPT/HCPCS: 36415; 80048; 85025; 85610

== ENCOUNTER 2025-03-17 07:19 | Emergency (ER) | payer MEDICARE, OTHER, SELFPAY ==
--- NOTE | ~2025-03-17 | CT_ITS ---
Izabel Miguel Ormrod EXAMINATION: CT abdomen pelvis w con COMPARISON: None HISTORY: pressure w/ urin, freq, hematuria; TECHNIQUE: Axial images were obtained through the abdomen, pelvis post administration of IV contrast. Oral contrast was also administered. Coronal reconstruction images were obtained from the axial views. CT scan performed using dose optimization techniques including the following automated exposure control; adjustment of mA and/or kV; use of iterative reconstruction technique. Automatic exposure control was used to reduce radiation dose. Permanent radiation dose record is archived to PACS. FINDINGS: CT abdomen: LUNG BASES: Mild cardiomegaly. LIVER: Minimal hepatic steatosis. Portal vein patent. No intrahepatic biliary duct dilatation. SPLEEN: Unremarkable. KIDNEYS: Right Kidney: Right kidney lower pole 2 mm calculus, no hydronephrosis. Left Kidney: Left kidney lower pole 1 mm calculus, no hydronephrosis. ADRENAL GLANDS: Subcentimeter bilateral adrenal nodules. PANCREAS: Pancreas atrophic. GALLBLADDER/BILIARY: Cholelithiasis. STOMACH AND ESOPHAGUS: Small hiatal hernia. The stomach is decompressed. BOWEL/MESENTERY: Duodenal diverticulum 2.5 x 2.5 cm. Moderate to severe diverticulosis, no colitis or diverticulitis. Appendix normal. Mesentery normal. No dilated small bowel loops. ADENOPATHY/RETROPERITONEUM: No lymphadenopathy. AORTA/VASCULATURE: Normal caliber aorta. FREE FLUID OR FREE AIR: No free fluid.. CT pelvis: SOLID ORGANS/REPRODUCTIVE: There is no adnexal mass. BLADDER: The bladder is thickened with mucosal hyperemia perivesicular stranding. OSSEOUS STRUCTURES: No acute osseous abnormality.No suspicious lesions. OVERLYING SOFT TISSUES: Unremarkable. IMPRESSION: 1. Severe cystitis. Incidental findings above Reviewed, dictated and finalized at location A.
--- OUTSIDE RECORDS SUMMARY | 2025-03-17 07:21 | XMS_ITS | Encounter Summary ---
Author Organization [facility] Address [address] [facility] [place] [address] Care Team Providers Care Oil Well Drilling Manager Name Role Phone Declan Rolon MD Unavailable [phone] Ehsan Cruz MD Primary Care Provider Encounter Details Date Type Department Care Team (Late st Contact Info) Description 04/16/2024 Lab Requisition [facility] - DermPath Lab [address] [facility], [place] [address] Claribel Baez DO [address] [facility] 3 [place] [address] Social History Tobacco Use Types Packs/Day Years [...] AM CDT) Case Report Dermatopathology Report Case: [id number] Authorizing Provider: Claribel Baez DO Collected: 04/16/2024 09:18 AM Ordering Location: [facility] - Received: 04/16/2024 02:58 [...] characteristic determined by the Dermatopathology Laboratory at [facility], directed by Dr. Jaqueline Berman. These tests need not be, and therefore are not, approved by the [place] Food and Drug Administration. The tests are used for clinical purposes. Billing Codes Specimen Charges Stain Charges 55493 1 2:01 PM CDT DERMATOPATHOLOGY LABORATORY Embedded Images 2:01 PM CDT DERMATOPATHOLOGY LABORATORY Pathology/Cytolo gy TISSUE SPECIMEN FROM SKIN / Unknown 04/16/2024 9:18 AM CDT 04/16/2024 2:58 PM CDT Claribel Baez DO LAB - PATHOLOGY/CYTOLOGY ORDERABLES Final Result DERMATOPATHOLOGY LABORATORY [facility] - Department of Dermatology [facility] [address] [facility], 3rd Floor [address] [phone] documented in this encounter Visit Diagnoses Not on filedocumented in this encounter Care Teams Oil Well Drilling Manager Relationship Specialty [place] [address] [facility] [address] [place] [address] PCP - General 05/13/22 [place] [address] [place] [address] Internal Medicine 10/18/18 documented as of this encounter
--- OUTSIDE RECORDS SUMMARY | 2025-03-17 07:21 | XMS_ITS | Clinical Summary ---
Author Organization [facility] Address [facility] [place] [address] Care Team Providers Care Garage Hand Name Role Phone Krishna Scales MD Primary Care Provider [phone] Allergies No known active allergies Medications metoprolol tartrate (LOPRESSOR) 25 mg immediate release tablet Take 1 tablet (25 mg total) by mouth 2 (two) times a day Active lisinopriL (PRINIVIL,ZESTR IL) 20 mg tablet Take 1 tablet (20 mg total) by mouth daily Active cholecalciferol (VITAMIN D-3) 03287 unit capsule Take 1 capsule (10,000 Units [...] (950 mg total) by mouth daily Active Encounters Date Type Department Care Team Description 01/21/2025 9:20 AM CDT - 01/21/2025 11:59 PM CDT Hospital Encounter [facility] - Imaging [address] [place] [address] Other specified congenital malformations of heart Discharge Disposition: Discharge to home or self care from Last 3 Months Surgical History Surgery Date Site/Laterality Comments OOPHORECTOMY Medical History Medical History Date Comments Osteoporosis Arthritis Dyslipidemia Hypertension Lumbar radiculitis Pelvic floor dysfunction in female Right hip pain Trigger finger of right hand Trochanteric bursitis of right hip Social History Tobacco Use Types Packs/Day Years Used Date Smoking Tobacco: Former Cigarettes Tobacco Cessation:Counseling Given: Not Answered Comments Unknown Sex and Gender Information Value Date Recorded Sex Assigned at Not on file 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 Gender Identity Female 01/14/2025 9:41 AM CDT Sexual Orientation Straight 01/14/2025 9: 41 AM CDT Obstetrics History Last Filed Vital Signs Vital Sign Reading Time Taken Comments Blood Pressure - - Pulse - - Temperature - - Respiratory Rate - - Oxygen Saturation - - Inhaled Oxygen Concentration - - Weight 85.7 kg (189 lb) 01/21/2025 9:38 AM CDT Height - - Body Mass Index - - Plan of Treatment Health Maintenance Due Date Last Done Comments Breast Cancer Screening-Mammogram 1950 Colon Cancer Screening-Colonoscopy 1950 Depression Screening 1950 Fall Risk Assessment 1950 Hepatitis C Screening 1950 Osteoporosis Screening-Bone Density Scan 1951 Hepatitis B Screening 1969 Well Visit 65+ 2016 Zoster Vaccine (2 of 3) 06/22/2019 04/27/2019, 01/10 Covid-19 Vaccine (2024-2 6 season) 2025 03/11/2022, 10/10/2021, 04/24/2021, Additional history exists Influenza Vaccine (#1) 2025 2, 03/12/2021, 04/07/2019, Additional history exists DTaP/Tdap/Td Vaccine (2 - Td or Tdap) 06/12/2029 06/12/2019 Pneumococcal vaccine 65+ Completed 04/27/2019, 04/03 Procedures Procedure Name Priority Date/Time Associated Diagnosis Comments MRI CARDIAC M&FUNC W WO CONTRAST Schedule Routine, Read Routine (OP Routine) 01/21/2025 11:52 AM CDT Other specified congenital malformations of heart from Last 3 Months Results * MRI Cardiac M&F W WO Contrast (01/21/2025 11:52 AM CDT) Anatomical Region Laterality Modality Body N/A Magnetic Resonan ce 01/21/2025 12:0 6 PM CDT Narrative 01/21/2025 12:06 PM CDT Cardiac MRI with and without contrast and velocity flow imaging were performed on a 1.5 T scanner to evaluate myocardial morphology, function and viability in a patient with a reported history of congenital cardiac disease. 1. The left ventricle is normal in cavity size with normal wall thickness with a basal sigmoid septum. Global systolic function is normal. The quantitated LV ejection fraction is 64%. There are no regional wall motion abnormalities. 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 LVEDV: 108 ml LVESV: 38 ml 2. The right ventricle is normal in cavity size, wall thickness and systolic function. 3. Atrial sizes are poorly assessed owing to malalignment of the 4-chamber view. 4. The aortic valve is tricuspid. There is no significant valvular disease seen. 5. Delayed enhancement imaging demonstrates no evidence of myocardial infarction, scar or infiltrative disease. 6. There is no intracardiac thrombus. 7. Measured Qp:Qs of 1.0 by velocity flow imaging consistent with the absence of significant intracardiac shunting. SUMMARY: Normal biventricular size and systolic function. LVEF of 64%. No myocardial damage. Electronically signed by: Mario Vieyra M.D. Procedure Note Mario Vieyra MD - 01/21/2025 Cardiac MRI with and without contrast and velocity flow imaging were performed on a 1.5 T scanner to evaluate myocardial morphology, function and viability in a patient with a reported history of congenital cardiac disease. 1. The left ventricle is normal in cavity size with normal wall thickness with a basal sigmoid septum. Global systolic function is normal. The quantitated LV ejection fraction is 64%. There are no regional wall motion abnormalities. 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 LVEDV: 108 ml LVESV: 38 ml 2. The right ventricle is normal in cavity size, wall thickness and systolic function. 3. Atrial sizes are poorly assessed owing to malalignment of the 4-chamber view. 4. The aortic valve is tricuspid. There is no significant valvular disease seen. 5. Delayed enhancement imaging demonstrates no evidence of myocardial infarction, scar or infiltrative disease. 6. There is no intracardiac thrombus. 7. Measured Qp:Qs of 1.0 by velocity flow imaging consistent with the absence of significant intracardiac shunting. SUMMARY: Normal biventricular size and systolic function. LVEF of 64%. No myocardial damage. Electronically signed by: Mario Vieyra M.D. Elsi Kate MD IMG MRI PROCEDURES Final Result from Last 3 Months Insurance MEDICARE [employer] MEDICARE [facility] Care Teams Garage Hand Relationship Specialty Start Date End Date Krishna Scales MD [address] [place] [address] PCP - General Family Practice 01/21/25
--- OUTSIDE RECORDS SUMMARY | 2025-03-17 07:21 | XMS_ITS | Encounter Summary ---
Author Organization [facility] Address [address] [place] [place] [address] Care Team Providers Care Mold Capper Name Role Phone [address] Primary Care Prov ider Declan Rolon MD Unavailable [phone] Ehsan Cruz MD Primary Care Provider [phone] Encounter Details Date Type Department Care Team (Late st Contact Info) Description 10/19/2018 Lab Requisition [facility] Care DermPath Lab [address] [facility], [place] [address] Claribel Baez DO [address] [facility] [address] [place] [address] Social History Tobacco Use Types Packs/Day Years [...] AM CDT) Case Report Dermatopathology Report Case: [id number] Authorizing Provider: Claribel Baez DO Collected: 10/18/2018 [...] characteristic determined by the Dermatopathology Laboratory at [facility], directed by Dr. Jaqueline Berman. These tests need not be, and therefore are not, approved by the [place] Food and Drug Administration. The tests are used for clinical purposes. Billing Codes Specimen Charges Stain Charges 50656 1 12:20 PM CDT DERMATOPATHOLOGY LABORATORY Embedded Images 12:20 PM CDT DERMATOPATHOLOGY LABORATORY Pathology/Cytolog y TISSUE SPECIMEN FROM SKIN / Unknown 10/18/2018 10/19/2018 12:22 PM CDT us Claribel Baez DO LAB - PATHOLOGY/CYTOLOGY ORDERABLES Final Result DERMATOPATHOLOGY LABORATORY [facility] - Department of Dermatology [address] [facility], 5th Floor Lab [address] [place], [place] [address] [phone] documented in this encounter Visit Diagnoses Not on filedocumented in this encounter Care Teams Mold Capper Relationship Specialty Start Date End Date Clinic[facility], [facility] [address] [facility], [place] [address] PCP - General 10/18/18 05/12/22 [place] [address] [facility] [address] [place] [address] PCP - General 05/13/22 Declan Rolon MD [address] [place] [address] Internal Medicine 10/18/18 documented as of this encounter
[2025-03-17 07:26] VITALS: BP 167/85; PULSE 61; RESP 20; TEMP 36.4; O2SAT 94
[2025-03-17 08:17] LABS: Add Urine Microscopic? YES
[2025-03-17 08:22] LABS: Leukocyte Esterase Ur Trace LEU/UL (Negative)
[2025-03-17 08:24] LABS: Appearance Urine Turbid (Clear)
[2025-03-17 08:25] LABS: Glucose Urine UA Negative (Negative); Specific Grav Ur 1.010 (1.001-1.035)
[2025-03-17 08:26] LABS: Nitrate Urine Positive (Negative)
[2025-03-17 09:18] LABS: Hematocrit 44.8 % (37.0-47.0); Hemoglobin 14.4 g/dL (12.0-15.0); Immature Granulocyte Percent A 0.3 % (0-0.5); Lymphocytes Absolute Auto 1.36 K/mm3 (0.9-3.2); Mean Corpuscular HGB Conc 32.1 g/dl (32-36); Mean Corpuscular Hemoglobin 28.8 pg (26-34); Mean Corpuscular Volume 89.6 fl (80-100); Nucleated Red Blood Cells Absolute Auto 0.000 K/mm3 (0.0-0.012); Nucleated Red Blood Cells Perc 0.0 % (0.0-0.2); Platelet Count Result 268 k/mm3 (150-375); Red Blood Count 5.00 M/mm3 (4.2-5.4); White Blood Count 9.4 K/mm3 (4.5-10.0)
[2025-03-17 09:30] LABS: Partial Thromboplastin Time 26.1 Seconds (22.3-36.8)
[2025-03-17 09:31] LABS: INR 0.9; Prothrombin Time 12.8 Seconds (11.1-14.7)
[2025-03-17 09:39] LABS: Alanine Aminotransferase 24 U/L (6-35); Albumin Level 4.3 g/dL (3.5-5.1); Alkaline Phosphatase 70 U/L (38-126); Anion Gap 6 mmol/L (4-12); Aspartate Amino Transferase 30 U/L (14-36); Bilirubin,Total 0.9 mg/dL (0.2-1.3); Blood Urea Nitrogen 18 mg/dL (7-17); Calcium 9.8 mg/dL (8.4-10.2); Carbon Dioxide 31 mmol/L (22-30); Chloride 102 mmol/L (98-107); Estimated CRCL calculation 63 ml/min; Estimated Glomerular Filt Rate > 60; Glucose 117 mg/dL (65-110); Potassium 4.7 mmol/L (3.4-5.0); Sodium 139 mmol/L (137-145); Total Protein 7.4 g/dL (6.3-8.2)
--- NOTE | 2025-03-17 10:14 | ED.FEMALEGU ---
HPI - Female Genitourinary General Chief complaint: Urogenital-Female Stated complaint: possible uti, hematuria Time Seen by Provider: 03/17/25 08:50 Source: patient and family ( Roberto Carlos) Mode of arrival: ambulatory Limitations: no limitations History of Present Illness HPI Narrative: Patient presents with concern for urinary tract infection. Denies any burning with urination but since Tuesday she experiences a pressure in her low abdomen when she has to urinate. She has been having urinary frequency but has had diminished output as only dribbles. This morning, she had hematuria with bright red bloody stool and minute clots. She states this hematuria has never happened before. She has had a history of urinary tract infection but her last episode of pyelonephritis occurred approximately 55 years ago in the . She takes aspirin as prescribed by her dentist private practice and did start topical Voltaren due to a hand injury although denies any other NSAIDs PO. Not on other anticoagulation and no recent steroids. She was experiencing some left-sided abdominal pain on the lateral side. Denies any back/flank pain distinctly. No fevers, chills, nausea, or vomiting. Denies any vaginal bleeding or discharge. Does not follow regularly with a urologist. Related Data Home Medications ?Medication ?Instructions ?Recorded ?Confirmed ?Last Taken ?Type calcium citrate 200 mg PO DAILY 01/14/23 03/08/25 Unknown History cholecalciferol (vitamin D3) 25 25 mcg PO DAILY 01/14/23 03/08/25 Unknown History mcg (1,000 unit) capsule loperamide 2 mg capsule (Imodium 2 mg PO DAILY 03/03/23 03/08/25 Unknown History A-D) atorvastatin 20 mg tablet mg PO 09/10/24 03/08/25 Unknown History aspirin 81 mg tablet,delayed 81 mg PO DAILY 03/13/25 Unknown History release (Adult Low Dose Aspirin) magnesium aspart,citrate,oxide mg PO 03/13/25 Unknown History Allergies Allergy/AdvReac Type Severity Reaction Status Date / Time No Known Allergies Allergy Verified 03/08/25 08:01 [facility] Past Medical History Medical History Pyelonephritis in the History of UTI Fracture of distal end of left radius Arthritis of wrist, left, degenerative Screening mammogram, encounter for Encounter for Papanicolaou smear for cervical cancer screening Lumbar radiculopathy Left hip pain Pelvic floor dysfunction in female Adenomatous colon polyp Arthritis of right hand Colon cancer screening Hypertension Trigger finger of right hand Age related osteoporosis Trochanteric bursitis of right hip Lumbar radiculitis Dyslipidemia Right hip pain Surgical History Surgical History History of tonsillectomy (~1960) History of gynecological procedure (~1990) ovary removed H/O tubal ligation (~1993) History of bunionectomy (07/04/12) History of orthopedic surgery broken wrist H/O oophorectomy (07/05/19) robotic assisted right salpingo-oopherectomy Family History Family History Grandparent Family history of liver disease Family history of malignant neoplasm of uterus Mother Family history of hyperthyroidism Family history of chronic obstructive pulmonary disease Father Family history of lymphoma Depression Alcoholism Social History Social History Social History: , Roberto Carlos Years smoked: 30 Smoking status: Former smoker Tobacco type: cigarettes Smoking end date: 01/01/97 Alcohol intake: current Drinks per week: 5 Substance use: never Substance use type: does not use Do You Feel Safe in your Home?: Yes Lack of Transportation: No Lack of Food: Never True Current Housing: I Have Housing Concerned About Future Housing: No Difficulty Paying Gas/Electric Bills: No Difficulty Paying for Meds: No Currently Unemployed: No Education: Decline to Answer Difficulty w/ Childcare or Family Care: No Living arrangements: with family Additional living arrangements comments: Occupation/Education: retired Gender identity (if verbalized by the patient): Female Sexual Orientation (if Verbalized by the Patient): Straight or Heterosexual Spiritual care concerns: No Exam Narrative: GENERAL: Well-appearing, well-nourished, and in no acute distress. HEAD: Normocephalic, atraumatic. EYES: Non injected, non icteric ENT: Nares clear, no rhinorrhea or epistaxis. Gross auditory acuity intact. NECK: Supple. No meningismus. CHEST: Speaking in full sentences. No respiratory distress. HEART: Regular rate and rhythm. . ABDOMEN: Soft, nondistended. No rigidity or guarding. Not peritoneal. No tenderness to palpation throughout. EXTREMITIES: Normal range of motion. SKIN: Warm, dry, no rash. NEURO: No focal deficits. Alert and oriented. Answering questions. Following commands. Normal speech without aphasia or dysarthria. PSYCH: Normal mood and affect. Course Vital Signs Vital signs: Vital Signs Temperature 97.6 F 03/17/25 07:26 Pulse Rate 61 03/17/25 07:26 Respiratory Rate 20 03/17/25 07:26 Blood Pressure 167/85 H 03/17/25 07:26 Pulse Oximetry 94 03/17/25 07:26 Oxygen Delivery Room Air 03/17/25 07:26 Temperature 97.6 F 03/17/25 07:26 Pulse Rate 68 03/17/25 12:55 Respiratory Rate 20 03/17/25 12:55 Blood Pressure 137/60 03/17/25 12:55 Pulse Oximetry 100 03/17/25 12:55 Oxygen Delivery Room Air 03/17/25 07:26 MDM - Female Genitourinary MDM Narrative Medical decision making narrative: Patient presents with report of a feeling of pressure like she has to go bathroom but only producing dribbling as well as urinary frequency since Tuesday. She began to hematuria this morning. In the emergency department she is afebrile with vital signs notable for hypertension. Urinalysis with marked hematuria. No bacteria identified and only 0-5 white blood cells and only trace leukocyte esterase. Does reflex to culture. Her symptoms do sound consistent with a urinary tract infection and I suspect that potentially no bacteria are are identified due to the degree of hematuria. Most recent culture showed no growth today however the urine culture from 02/2021 grew E coli that showed resistance only to ampicillin and indeterminate to amp sulbactam but otherwise with brought sensitivity. Will give ceftriaxon. No leukocytosis. Patient is not anemic. Normal renal function ; chemistry unremarkable. CT scan as below. Will DC with Rx for cephalexin. Patient also given a 1st dose Pyridium in the emergency department with the rest of the course prescribed. Stable for discharge. Prescriptions were initially sent to mail order pharmacy and this change was made to reflect patient's preferred pharmacy. Differential Diagnosis Differential diagnosis: Likely urinary tract infection (Hemorrhagic cystitis; Including pyelonephritis) and other (Medication side effect; coagulopathy; kidney stone/ureteral stone) Lab Data Attestation: I reviewed the patient's lab results. 03/17/25 09:10 03/17/25 09:10 Labs: Lab Results 03/17/25 03/17/25 Range/Units 07:38 09:10 WBC 9.4 (4.5-10.0) K/mm3 RBC 5.00 (4.2-5.4) M/mm3 Hgb 14.4 (12.0-15.0) g/dL Hct 44.8 (37.0-47.0) % MCV 89.6 (80-100) fl MCH 28.8 (26-34) pg MCHC 32.1 (32-36) g/dl RDW 14.2 (11.5-14.5) % Plt Count 268 (150-375) k/mm3 MPV 10.4 (7.4-10.4) fl Immature Gran % (Auto) 0.3 (0-0.5) % Neut % (Auto) 78.7 H (45.5-73.1) % Lymph % (Auto) 14.4 L (18.3-44.2) % Louisa % (Auto) 5.0 (2.6-8.5) % Eos % (Auto) 0.6 (0-4.4) % Baso % (Auto) 1.0 (0.2-1.2) % Lymph # (Auto) 1.36 (0.9-3.2) K/mm3 Louisa # (Auto) 0.5 (0.1-0.6) K/mm3 Eos # (Auto) 0.1 (0-0.3) K/mm3 Baso # (Auto) 0.1 (0.0-0.1) K/mm3 Abs Immat Gran (auto) 0.03 (0.00-0.031) K/mm3 Absolute Neuts (auto) 7.4 H (1.3-6.7) K/mm3 Absolute Nucleated RBC 0.000 (0.0-0.012) K/mm3 Nucleated RBC % 0.0 (0.0-0.2) % PT 12.8 (11.1-14.7) Seconds INR 0.9 APTT 26.1 (22.3-36.8) Seconds Sodium 139 (137-145) mmol/L Potassium 4.7 (3.4-5.0) mmol/L Chloride 102 (98-107) mmol/L Carbon Dioxide 31 H (22-30) mmol/L Anion Gap 6 (4-12) mmol/L BUN 18 H (7-17) mg/dL Creatinine 0.74 (0.7-1.0) mg/dL Estim Creat Clear Calc 63 ml/min Estimated GFR > 60 (59 - ) Glucose 117 H (65-110) mg/dL Calcium 9.8 (8.4-10.2) mg/dL Total Bilirubin 0.9 (0.2-1.3) mg/dL AST 30 (14-36) U/L ALT 24 (6-35) U/L Alkaline Phosphatase 70 (38-126) U/L Total Protein 7.4 (6.3-8.2) g/dL Albumin 4.3 (3.5-5.1) g/dL Urine Color Red H (Yellow) Urine Appearance Turbid H (Clear) Urine pH 6.5 (5.0-9.0) Ur Specific [place] 1.010 (1.001-1.035) Urine Protein 1+ H (Negative) mg/dL Urine Glucose (UA) Negative (Negative) mg/dL Urine Ketones Negative (Negative) mg/dL Ur Blood (Man) 3+ H (Negative) Urine Nitrate Positive H (Negative) Urine Bilirubin Negative (Negative) Urine Urobilinogen 0.2 (<2.0) mg/dL Leukocyte Esterase Rfl Trace H (Negative) KELSI/UL Urine RBC >100 H (0-2) /hpf Urine WBC 0-5 (0-3) /hpf Ur Squamous Epith Cells None seen (Few) /hpf Ur Transition Epith Cell None seen (None) /hpf Urine Bacteria None seen (None) /hpf Imaging Data Radiologist's impression: Impressions Abdomen/Pelvis CT 03/17/25 11:24 IMPRESSION: 1. Severe cystitis. Incidental findings above Discharge Plan Discharge Clinical Impression: Cystitis with hematuria Patient Disposition: Home Condition: Stable Instructions: Antibiotic Form, Hematuria (ED), Interstitial Cystitis (ED), Urinary Tract Infection in Older Adults (ED) Additional Instructions: Pyridium/phenazopyridine can help with the pain you are experiencing from a urinary tract infection. It can discolor your urine and tears (turn them orange). Do not wear contact lenses while taking this medication. Receiving her 1st dose of antibiotics in the emergency department the rest of the course prescribed. Follow-up with your primary care physician and return to the ED with any new or worsening symptoms. Patient Language: South African Prescriptions: New cephalexin 500 mg capsule 500 mg PO Q8H 5 Days Qty: 15 0RF phenazopyridine [Pyridium] 100 mg tablet 100 mg PO TID PRN (Reason: pain) Qty: 5 0RF Rx Instructions: first dose in ED cephalexin 500 mg capsule 500 mg PO Q8H 5 Days Qty: 15 0RF phenazopyridine [Pyridium] 100 mg tablet 100 mg PO TID PRN (Reason: pain) Qty: 5 0RF Rx Instructions: rec'd first dose in ED No Action loperamide [Imodium A-D] 2 mg capsule 2 mg PO DAILY aspirin [Adult Low Dose Aspirin] 81 mg tablet,delayed release (DR/EC) 81 mg PO DAILY magnesium aspart,citrate,oxide 400 mg magnesium capsule PO cholecalciferol (vitamin D3) 25 mcg (1,000 unit) capsule 25 mcg PO DAILY calcium citrate 200 mg (950 mg) tablet 200 mg PO DAILY atorvastatin 20 mg tablet PO metoprolol succinate 25 mg tablet extended release 24 hr See Rx Instructions .ROUTE .COMPLEX Qty: 90 2RF Dose Instruction: TAKE 1 TABLET DAILY Rx Instructions: TAKE 1 TABLET DAILY lisinopril 20 mg tablet See Rx Instructions .ROUTE .COMPLEX Qty: 90 1RF Dose Instruction: TAKE 1 TABLET DAILY Rx Instructions: TAKE 1 TABLET DAILY nitrofurantoin monohyd/m-cryst [Macrobid] 100 mg capsule 100 mg PO Q12H 5 Days Qty: 10 0RF Rx Instructions: must administer with a meal/food Follow-up/Referrals: Krishna Scales MD [Primary Care Provider, Family Practice] Stand Alone Forms: Work/School Release IP Time of Disposition: 11:54
[2025-03-17 10:54] VITALS: BP 157/76; PULSE 62; RESP 20; O2SAT 95
--- NOTE | 2025-03-17 11:31 | PC.NURSE ---
Pt refused need for pain meds
[2025-03-17] MEDS: PHENAZOPYRIDINE HCL 100 MG TABLET PO (12:05)
[2025-03-17] MEDS: cefTRIAXone 1 GM in SODIUM CHLORIDE 0.9% IV 50 ML 100 ML IVPB (12:06)
[2025-03-17 12:55] VITALS: BP 137/60; PULSE 68; RESP 20; O2SAT 100
== END 2025-03-17 12:57 | disposition home or self-care (01) ==
PROVIDERS: Emergency Provider Student in an Organized Health Care Education/Training Program; PCP Family Medicine
DX: N30.91 Cystitis, unspecified with hematuria (principal); Z87.440 Personal history of urinary (tract) infections; M19.90 Unspecified osteoarthritis, unspecified site; I10 Essential (primary) hypertension; E78.5 Hyperlipidemia, unspecified; Z79.82 Long term (current) use of aspirin; K76.0 Fatty (change of) liver, not elsewhere classified; N20.0 Calculus of kidney; K80.20 Calculus of gallbladder without cholecystitis without obstruction
CPT/HCPCS: 36415; 74177; 80053; 81001; 85025; 85610; 85730; 87086; 96365; 99284; A9270; J0696; Q9967

== ENCOUNTER 2025-03-29 10:11 | Outpatient (CLI) | payer MEDICARE, OTHER, SELFPAY ==
[2025-03-29 18:02] LABS: Add Urine Microscopic? YES; Appearance Urine Turbid (Clear); Glucose Urine UA Negative (Negative); Leukocyte Esterase Ur Negative LEU/UL (Negative); Nitrate Urine Negative (Negative); Non Pathogenic Casts 0-2; Specific Grav Ur 1.019 (1.001-1.035)
== END 2025-03-29 10:12 | disposition home or self-care (01) ==
PROVIDERS: PCP Family Medicine; Visit Provider Family Medicine
DX: N30.01 Acute cystitis with hematuria (principal)
CPT/HCPCS: 81001; 87086

== ENCOUNTER 2025-04-12 07:22 | Outpatient (CLI) | payer MEDICARE, OTHER, SELFPAY ==
--- OUTSIDE RECORDS SUMMARY | 2025-04-12 07:48 | XMS_ITS | Clinical Summary ---
Author Organization [facility] Address [address] [place] [address] Care Team Providers Care Road Inspector Name Role Phone Declan Rolon MD Unavailable Ehsan Cruz MD Primary Care Provider [phone] Source Comments [facility],non-owned Affiliates and Associated Physician Practices is amultiple site organization consisting of ambulatory clinics and hospital sitesin [place], [place], [place] and [place]. This disclosure is being madepursuant to the Care Everywhere program and may not contain all information available regarding this patient. Last updated 18.[facility] Allergies No known active allergies Medications * [...] 2001 ZOSTER VACCINE (1 of 2) 2001 DEPRESSION SCREENING 07/04/2024 COVID-19 VACCINE (1 - 2023-2 5 season) 2025 INFLUENZA VACCINE (#1) 2025 Respiratory Syncytial Virus (RSV) Vaccine Pt: [...] to complete this topic Insurance MEDICARE MEDICARE [facility] MEDICARE Care Teams Road Inspector Relationship Specialty [place] [id number] [address] PCP - General 05/13/22 Declan Rolon MD [address] [place] [address] Internal Medicine 10/18/18
--- OUTSIDE RECORDS SUMMARY | 2025-04-12 07:48 | XMS_ITS | Encounter Summary ---
Author Organization [facility] Address [address] [facility] [place] [address] Care Team Providers Care Baby Attendant Name Role Phone Declan Rolon MD Unavailable [phone] Ehsan Cruz MD Primary Care Provider [phone] Encounter Details Date Type Department Care Team (Late st Contact Info) Description 04/16/2024 Lab Requisition [facility] - DermPath Lab [address] [facility] [place] [address] Claribel Baez DO [address] [facility] [address] [place] [address] Social History Tobacco Use Types Packs/Day Years [...] AM CDT) Case Report Dermatopathology Report Case: [id number] Authorizing Provider: Claribel Baez DO Collected: 04/16/2024 09:18 AM Ordering Location: [facility] - Received: 04/16/2024 02:58 PM [...] characteristic determined by the Dermatopathology Laboratory at [facility], directed by Dr. Jaqueline Berman. These tests need not be, and therefore are not, approved by the [place] Food and Drug Administration. The tests are used for clinical purposes. Billing Codes Specimen Charges Stain Charges 17277 1 2:01 PM CDT DERMATOPATHOLOGY LABORATORY Embedded Images 2:01 PM CDT DERMATOPATHOLOGY LABORATORY Pathology/Cytolo gy TISSUE SPECIMEN FROM SKIN / Unknown 04/16/2024 9:18 AM CDT 04/16/2024 2:58 PM CDT Claribel Baez DO LAB - PATHOLOGY/CYTOLOGY ORDERABLES Final Result DERMATOPATHOLOGY LABORATORY [facility] - Department of Dermatology [facility] Medicine [address] [facility], 3rd Floor [address] [phone] documented in this encounter Visit Diagnoses Not on filedocumented in this encounter Care Teams Baby Attendant Relationship Specialty [place] [address] [facility] [address] [place] [address] PCP - General 05/13/22 [place] [address] [place] [address] Internal Medicine 10/18/18 documented as of this encounter
--- OUTSIDE RECORDS SUMMARY | 2025-04-12 07:48 | XMS_ITS | Clinical Summary ---
Author Organization [facility] Address [facility][note 3][address] [place] [address] Care Team Providers Care Suction Plate Carrier Cleaner Name Role Phone Krishna Scales MD Primary Care Provider [phone] Allergies No known active allergies Medications metoprolol tartrate (LOPRESSOR) 25 mg immediate release tablet Take 1 tablet (25 mg total) by mouth 2 (two) times a day Active lisinopriL (PRINIVIL,ZESTR IL) 20 mg tablet Take 1 tablet (20 mg total) by mouth daily Active cholecalciferol (VITAMIN D-3) 28180 unit capsule Take 1 capsule (10,000 Units [...] - 01/21/2025 11:59 PM CDT Hospital Encounter [facility] - Imaging [address] [place] [address] Other specified congenital malformations of [...] on file Legal Sex Female 11:28 AM TAR POT MAN Gender Identity Female 01/14/2025 9:41 AM CDT [...] left ventricular myocardial crypt located at the cwcnz-mg-amw inferior wall. LVEDV: 108 ml LVESV: 38 [...] left ventricular myocardial crypt located at the epjtw-nz-ykh inferior wall. LVEDV: 108 ml LVESV: 38 [...] Result from Last 3 Months Insurance MEDICARE [employer] MEDICARE [facility] Care Teams Suction Plate Carrier Cleaner Relationship Specialty Start Date End Date Krishna Scales MD [address] [place] [address] PCP - General Family Practice 01/21/25
--- OUTSIDE RECORDS SUMMARY | 2025-04-12 07:48 | XMS_ITS | Encounter Summary ---
Author Organization [facility] Address [address] [facility] [place] [address] Care Team Providers Care Handy Man Name Role Phone [address] Primary Care Prov ider Declan Rolon MD Unavailable [phone] Ehsan Cruz MD Primary Care Provider [phone] Encounter Details Date Type Department Care Team (Late st Contact Info) Description 10/19/2018 Lab Requisition [facility] Care DermPath Lab [address] [facility] [place] [address] Claribel Baez DO [address] [facility] [address] [place] [address] Social History Tobacco Use Types Packs/Day Years [...] AM CDT) Case Report Dermatopathology Report Case: [id number] Authorizing Provider: Claribel Baez DO Collected: 10/18/2018 [...] characteristic determined by the Dermatopathology Laboratory at [facility], directed by Dr. Jaqueline Berman. These tests need not be, and therefore are not, approved by the [place] Food and Drug Administration. The tests are used for clinical purposes. Billing Codes Specimen Charges Stain Charges 25864 1 12:20 PM CDT DERMATOPATHOLOGY LABORATORY Embedded Images 12:20 PM CDT DERMATOPATHOLOGY LABORATORY Pathology/Cytolog y TISSUE SPECIMEN FROM SKIN / Unknown 10/18/2018 10/19/2018 12:22 PM CDT us Claribel Baez DO LAB - PATHOLOGY/CYTOLOGY ORDERABLES Final Result DERMATOPATHOLOGY LABORATORY [facility] - Department of Dermatology [address] [facility], 5th Floor Lab [address] [place], [place] [address] [phone] documented in this encounter Visit Diagnoses Not on filedocumented in this encounter Care Teams Handy Man Relationship Specialty Start Date End Date [facility] [address] [facility], [place] [address] PCP - General 10/18/18 05/12/22 [place] [address] [facility] [address] [place] [address] PCP - General 05/13/22 Declan Rolon MD [address] [place] [address] Internal Medicine 10/18/18 documented as of this encounter
== END 2025-04-12 07:23 | disposition home or self-care (01) ==
LOC: ANHAUDASC 07:44
PROVIDERS: PCP Family Medicine; Visit Provider Family Medicine
DX: H90.3 Sensorineural hearing loss, bilateral (principal)
CPT/HCPCS: 92557; 92567

== ENCOUNTER 2025-04-13 08:40 | Outpatient (CLI) | payer MEDICARE, OTHER, SELFPAY ==
--- OUTSIDE RECORDS SUMMARY | 2025-04-13 08:43 | XMS_ITS | Encounter Summary ---
Author Organization [facility] Address [address] [facility] [place] [address] Care Team Providers Care Strategic Communications Manager Name Role Phone [address] Primary Care Prov ider Declan Rolon MD Unavailable [phone] Ehsan Cruz MD Primary Care Provider [phone] Encounter Details Date Type Department Care Team (Late st Contact Info) Description 10/19/2018 Lab Requisition [facility] Care DermPath Lab [address] [facility] [place] [address] Claribel Baez DO [address] [facility] [address] [place] [address] Social History Tobacco Use Types Packs/Day Years [...] AM CDT) Case Report Dermatopathology Report Case: [id number] Authorizing Provider: Claribel Baez DO Collected: 10/18/2018 [...] characteristic determined by the Dermatopathology Laboratory at [facility], directed by Dr. Jaqueline Berman. These tests need not be, and therefore are not, approved by the [place] Food and Drug Administration. The tests are used for clinical purposes. Billing Codes Specimen Charges Stain Charges 67359 1 12:20 PM CDT DERMATOPATHOLOGY LABORATORY Embedded Images 12:20 PM CDT DERMATOPATHOLOGY LABORATORY Pathology/Cytolog y TISSUE SPECIMEN FROM SKIN / Unknown 10/18/2018 10/19/2018 12:22 PM CDT us Claribel Baez DO LAB - PATHOLOGY/CYTOLOGY ORDERABLES Final Result DERMATOPATHOLOGY LABORATORY [facility] - Department of Dermatology [address] [facility], 5th Floor Lab [address] [place], [place] [address] [phone] documented in this encounter Visit Diagnoses Not on filedocumented in this encounter Care Teams Strategic Communications Manager Relationship Specialty Start Date End Date [facility] [address] [facility], [place] [address] PCP - General 10/18/18 05/12/22 [place] [address] [facility] [address] [place] [address] PCP - General 05/13/22 Declan Rolon MD [address] [place] [address] Internal Medicine 10/18/18 documented as of this encounter
--- OUTSIDE RECORDS SUMMARY | 2025-04-13 08:43 | XMS_ITS | Clinical Summary ---
Author Organization [facility] Address [facility] [place] [address] Care Team Providers Care Cork Floor Installer Name Role Phone Krishna Scales MD Primary Care Provider [phone] Allergies No known active allergies Medications metoprolol tartrate (LOPRESSOR) 25 mg immediate release tablet Take 1 tablet (25 mg total) by mouth 2 (two) times a day Active lisinopriL (PRINIVIL,ZESTR IL) 20 mg tablet Take 1 tablet (20 mg total) by mouth daily Active cholecalciferol (VITAMIN D-3) 06928 unit capsule Take 1 capsule (10,000 Units [...] - 01/21/2025 11:59 PM CDT Hospital Encounter [facility] - Imaging [address] [place] [address] Other specified congenital malformations of [...] on file Legal Sex Female 11:28 AM TACK CLEANER Gender Identity Female 01/14/2025 9:41 AM CDT [...] left ventricular myocardial crypt located at the ajpcj-pp-gnp inferior wall. LVEDV: 108 ml LVESV: 38 [...] left ventricular myocardial crypt located at the cyvbk-mr-gec inferior wall. LVEDV: 108 ml LVESV: 38 [...] Result from Last 3 Months Insurance MEDICARE [employer] MEDICARE [facility] Care Teams Cork Floor Installer Relationship Specialty Start Date End Date Krishna Scales MD [address] [place] [address] PCP - General Family Practice 01/21/25
--- OUTSIDE RECORDS SUMMARY | 2025-04-13 08:43 | XMS_ITS | Encounter Summary ---
Author Organization [facility] Address [address] [facility] [place] [address] Care Team Providers Care Career And Technology Education Teacher Name Role Phone Declan Rolon MD Unavailable [phone] Ehsan Cruz MD Primary Care Provider [phone] Encounter Details Date Type Department Care Team (Late st Contact Info) Description 04/16/2024 Lab Requisition [facility] - DermPath Lab [address] [facility], [place] [address] Claribel Baez DO [address] [facility] 3 [place] [address] Social History Tobacco Use Types Packs/Day Years [...] AM CDT) Case Report Dermatopathology Report Case: [id number] Authorizing Provider: Claribel Baez DO Collected: 04/16/2024 09:18 AM Ordering Location: [facility] - Received: 04/16/2024 02:58 PM [...] characteristic determined by the Dermatopathology Laboratory at [facility], directed by Dr. Jaqueline Berman. These tests need not be, and therefore are not, approved by the [place] Food and Drug Administration. The tests are used for clinical purposes. Billing Codes Specimen Charges Stain Charges 04858 1 2:01 PM CDT DERMATOPATHOLOGY LABORATORY Embedded Images 2:01 PM CDT DERMATOPATHOLOGY LABORATORY Pathology/Cytolo gy TISSUE SPECIMEN FROM SKIN / Unknown 04/16/2024 9:18 AM CDT 04/16/2024 2:58 PM CDT Claribel Baez DO LAB - PATHOLOGY/CYTOLOGY ORDERABLES Final Result DERMATOPATHOLOGY LABORATORY [facility] - Department of Dermatology [facility] Medicine [address] [facility], [address]rd Floor [address] [phone] documented in this encounter Visit Diagnoses Not on filedocumented in this encounter Care Teams Career And Technology Education Teacher Relationship Specialty [place] [address] [facility] [address] [place] [address] PCP - General 05/13/22 [place] [address] [place] [address] Internal Medicine 10/18/18 documented as of this encounter
--- OUTSIDE RECORDS SUMMARY | 2025-04-13 08:43 | XMS_ITS | Clinical Summary ---
Author Organization [facility] Address [address] [facility] [place] [address] Care Team Providers Care Head Athletic Trainer Name Role Phone Declan Rolon MD Unavailable [phone] Ehsan Cruz MD Primary Care Provider [phone] Source Comments [facility]non-owned Affiliates and Associated Physician Practices is amultiple site organization consisting of ambulatory clinics and hospital sitesin [place], [place], [place] and [place]. This disclosure is being madepursuant to the Care Everywhere program and may not contain all information available regarding this patient. Last updated 18.[facility] Allergies No known active allergies Medications * [...] to complete this topic Insurance MEDICARE MEDICARE [facility] MEDICARE Care Teams Head Athletic Trainer Relationship Specialty [place] [id number] [address] PCP - General 05/13/22 Declan Rolon MD [address] [place] [address] Internal Medicine 10/18/18
[2025-04-13 09:04] LABS: Hematocrit 45.1 % (37.0-47.0); Hemoglobin 14.3 g/dL (12.0-15.0); Immature Granulocyte Percent A 0.5 % (0-0.5); Lymphocytes Absolute Auto 1.58 K/mm3 (0.9-3.2); Mean Corpuscular HGB Conc 31.7 g/dl (32-36); Mean Corpuscular Hemoglobin 28.8 pg (26-34); Mean Corpuscular Volume 90.9 fl (80-100); Nucleated Red Blood Cells Absolute Auto 0.000 K/mm3 (0.0-0.012); Nucleated Red Blood Cells Perc 0.0 % (0.0-0.2); Platelet Count Result 253 k/mm3 (150-375); Red Blood Count 4.96 M/mm3 (4.2-5.4); White Blood Count 7.6 K/mm3 (4.5-10.0)
[2025-04-13 09:11] LABS: Add Urine Microscopic? YES; Appearance Urine Clear (Clear); Glucose Urine UA Negative (Negative); Leukocyte Esterase Ur 2+ LEU/UL (Negative); Nitrate Urine Positive (Negative); Non Pathogenic Casts 0-2; Specific Grav Ur 1.016 (1.001-1.035)
[2025-04-13 09:20] LABS: Alanine Aminotransferase 23 U/L (6-35); Albumin Level 4.2 g/dL (3.5-5.1); Alkaline Phosphatase 65 U/L (38-126); Anion Gap 8 mmol/L (4-12); Aspartate Amino Transferase 30 U/L (14-36); Bilirubin,Total 1.0 mg/dL (0.2-1.3); Blood Urea Nitrogen 14 mg/dL (7-17); Calcium 9.3 mg/dL (8.4-10.2); Carbon Dioxide 30 mmol/L (22-30); Chloride 100 mmol/L (98-107); Estimated Glomerular Filt Rate > 60; Glucose 123 mg/dL (65-110); Potassium 4.4 mmol/L (3.4-5.0); Sodium 138 mmol/L (137-145); Total Protein 7.3 g/dL (6.3-8.2)
[2025-04-13 09:55] LABS: Thyroid Stimulating Hormone 0.748 uIU/mL (0.465-4.680)
== END 2025-04-13 08:41 | disposition home or self-care (01) ==
PROVIDERS: PCP Family Medicine; Visit Provider Family Medicine
DX: N30.01 Acute cystitis with hematuria (principal); I10 Essential (primary) hypertension; I47.29 Other ventricular tachycardia; K58.9 Irritable bowel syndrome, unspecified; Z79.899 Other long term (current) drug therapy
CPT/HCPCS: 36415; 80053; 81001; 84443; 85025; 87077; 87086; 87186

== ENCOUNTER 2025-04-23 09:13 | Outpatient (CLI) | payer MEDICARE, OTHER, SELFPAY ==
--- OUTSIDE RECORDS SUMMARY | 2025-04-23 10:27 | XMS_ITS | Encounter Summary ---
Author Organization [facility] Address [address] [facility] [place] [address] Care Team Providers Care Dairy Grazer Name Role Phone [address] Primary Care Prov ider Declan Rolon MD Unavailable [phone] Ehsan Cruz MD Primary Care Provider Encounter Details Date Type Department Care Team (Late st Contact Info) Description 10/19/2018 Lab Requisition [facility] DermPath Lab [address] [facility], [place] [address] Claribel Baez DO [address] [facility] 3 [place] [address] Social History Tobacco Use Types Packs/Day Years [...] AM CDT) Case Report Dermatopathology Report Case: [id number] Authorizing Provider: Claribel Baez DO Collected: 10/18/2018 [...] characteristic determined by the Dermatopathology Laboratory at [facility], directed by Dr. Jaqueline Berman. These tests need not be, and therefore are not, approved by the [place] Food and Drug Administration. The tests are used for clinical purposes. Billing Codes Specimen Charges Stain Charges 89628 1 12:20 PM CDT DERMATOPATHOLOGY LABORATORY Embedded Images 12:20 PM CDT DERMATOPATHOLOGY LABORATORY Pathology/Cytolog y TISSUE SPECIMEN FROM SKIN / Unknown 10/18/2018 10/19/2018 12:22 PM CDT us Claribel Baez DO LAB - PATHOLOGY/CYTOLOGY ORDERABLES Final Result DERMATOPATHOLOGY LABORATORY [facility] - Department of Dermatology [address] [facility], 5th Floor Lab [address] [place], [place] [address] [place] [phone] documented in this encounter Visit Diagnoses Not on filedocumented in this encounter Care Teams Dairy Grazer Relationship Specialty Start Date End Date [facility], [facility] [address] [facility], [place] [address] PCP - General 10/18/18 05/12/22 [place] [address] [facility] [address] [place] [address] PCP - General 05/13/22 Declan Rooln MD [address] [place] [address] Internal Medicine 10/18/18 documented as of this encounter
--- OUTSIDE RECORDS SUMMARY | 2025-04-23 10:27 | XMS_ITS | Encounter Summary ---
Author Organization [facility] Address [address] [facility] [address] Care Team Providers Care Dealer Sales Manager Name Role Phone Declan Rolon MD Unavailable [phone] Ehsan Cruz MD Primary Care Provider [phone] Encounter Details Date Type Department Care Team (Late st Contact Info) Description 04/16/2024 Lab Requisition [facility] - DermPath Lab [address] [facility], [place] [address] Claribel Baez DO [address] [facility] [address] [place] [address] Social History Tobacco Use Types Packs/Day Years [...] AM CDT) Case Report Dermatopathology Report Case: [id number] Authorizing Provider: Claribel Baez DO Collected: 04/16/2024 09:18 AM Ordering Location: [facility] - Received: 04/16/2024 [...] characteristic determined by the Dermatopathology Laboratory at [facility], directed by Dr. Jaqueline Berman. These tests need not be, and therefore are not, approved by the [place] Food and Drug Administration. The tests are used for clinical purposes. Billing Codes Specimen Charges Stain Charges 60846 1 2:01 PM CDT DERMATOPATHOLOGY LABORATORY Embedded Images 2:01 PM CDT DERMATOPATHOLOGY LABORATORY Pathology/Cytolo gy TISSUE SPECIMEN FROM SKIN / Unknown 04/16/2024 9:18 AM CDT 04/16/2024 2:58 PM CDT Claribel Baez DO LAB - PATHOLOGY/CYTOLOGY ORDERABLES Final Result DERMATOPATHOLOGY LABORATORY [facility] - Department of Dermatology [facility] Medicine [address] [facility], 3rd Floor [address] [phone] documented in this encounter Visit Diagnoses Not on filedocumented in this encounter Care Teams Dealer Sales Manager Relationship Specialty [place] [address] [facility] [address] [place] [address] PCP - General 05/13/22 [place] [address] [place] [phone] Internal Medicine 10/18/18 documented as of this encounter
--- OUTSIDE RECORDS SUMMARY | 2025-04-23 10:27 | XMS_ITS | Clinical Summary ---
Author Organization [facility] Address [address] [facility] [place] [address] Care Team Providers Care Head Cleaning Porter Name Role Phone Declan Rolon MD Unavailable [phone] Ehsan Cruz MD Primary Care Provider [phone] Source Comments [facility],non-owned Affiliates and Associated Physician Practices is amultiple site organization consisting of ambulatory clinics and hospital sitesin [place], [place], [place] and [place]. This disclosure is being madepursuant to the Care Everywhere program and may not contain all information available regarding this patient. Last updated 18.[facility] Allergies No known active allergies Medications * [...] to complete this topic Insurance MEDICARE MEDICARE [facility] MEDICARE Care Teams Head Cleaning Porter Relationship Specialty [place] [address] [address] PCP - General 05/13/22 Declan Rolon MD [address] [place] [address] Internal Medicine 10/18/18
--- OUTSIDE RECORDS SUMMARY | 2025-04-23 10:27 | XMS_ITS | Clinical Summary ---
Author Organization [facility] Address [facility] [place] [address] Care Team Providers Care Business Transformation Manager Name Role Phone Krishna Scales MD Primary Care Provider [phone] Allergies No known active allergies Medications metoprolol tartrate (LOPRESSOR) 25 mg immediate release tablet Take 1 tablet (25 mg total) by mouth 2 (two) times a day Active lisinopriL (PRINIVIL,ZESTR IL) 20 mg tablet Take 1 tablet (20 mg total) by mouth daily Active cholecalciferol (VITAMIN D-3) 18741 unit capsule Take 1 capsule (10,000 Units [...] - 01/21/2025 11:59 PM CDT Hospital Encounter [facility] [address] [place] [address] Other specified congenital malformations of [...] on file Legal Sex Female 11:28 AM BLOCK HACKER Gender Identity Female 01/14/2025 9:41 AM CDT [...] left ventricular myocardial crypt located at the [id number] inferior wall. LVEDV: 108 ml LVESV: 38 [...] left ventricular myocardial crypt located at the [id number] inferior wall. LVEDV: 108 ml LVESV: 38 [...] Result from Last 3 Months Insurance MEDICARE [employer] MEDICARE [facility] FOR LIFE Care Teams Business Transformation Manager Relationship Specialty Start Date End Date Krishna Scales MD [address] [place] [address] PCP - General Family Practice 01/21/25
[2025-04-23 19:19] LABS: Add Urine Microscopic? YES; Appearance Urine Turbid (Clear); Glucose Urine UA Negative (Negative); Leukocyte Esterase Ur Trace LEU/UL (Negative); Nitrate Urine Negative (Negative); Non Pathogenic Casts 0-2; Specific Grav Ur 1.020 (1.001-1.035)
== END 2025-04-23 09:14 | disposition home or self-care (01) ==
PROVIDERS: PCP Family Medicine; Visit Provider Family Medicine
DX: N30.01 Acute cystitis with hematuria (principal)
CPT/HCPCS: 81001; 87086